=== PATIENT | male | born 1940 | race Caucasian/White ===

== ENCOUNTER 2018-05-20 05:39 | Inpatient (IN) ==
[2018-05-20] MEDS ORDERED: *HR* EPINEPHrine 1 MG/10 ML SYRINGE ONE (05:48)
[2018-05-20] MEDS ORDERED: *HR* EPINEPHrine 1 MG/ML AMPUL IM ONE (05:56)
[2018-05-20] MEDS ORDERED: Famotidine 20 MG/2 ML VIAL IVP ONE (05:56)
[2018-05-20] MEDS ORDERED: methylPREDNISolone 125 MG/2 ML VIAL IVP ONE (05:56)
--- NOTE | 2018-05-20 06:27 | Emergency Department Note ---
Disposition Clinical Impression: Wheezing Allergic reaction Qualifiers: Encounter type: initial encounter Qualified Code(s): T78.40XA - Allergy, unspecified, initial encounter Angioedema Qualifiers: Encounter type: initial encounter Qualified Code(s): T78.3XXA - Angioneurotic edema, initial encounter Dyspnea Qualifiers: Dyspnea type: unspecified Qualified Code(s): R06.00 - Dyspnea, unspecified Disposition: Still a Patient Condition: Fair Referrals: Kenny Christopher DO [Primary Care Provider] - Forms: ED Satisfaction Letter General Adult HPI - General Chief complaint: ED Allergic Reaction Stated complaint: sob/allergy/lip swelling Time Seen by Provider: 05/20/18 05:55 Source: patient, family Mode of arrival: ambulatory Limitations: no limitations Nursing Notes Reviewed: Yes Vital Signs Reviewed: Yes - History of Present Illness HPI Narrative: 77-year-old male with significant past medical history of coronary artery disease, TIA and previous angioedema presenting to the emergency department chief complaint of lower lip swelling and difficulty in breathing. Patient states that he woke up this morning and noticed lower lip swelling and some difficulty in breathing. He states this has happened recently and was admitted and worked up for this. He is supposed to see an loan funder on . During previous admission he was diagnosed with angioedema from unknown source. Patient denies any tongue swelling, chest pain, abdominal pain. Denies any new medications. Pain Scale: 0 - Related Data Home Medications Medication Instructions Recorded Confirmed Amlodipine Besylate 2.5 mg PO DAILY 04/06/18 05/06/18 Cholecalciferol (Vitamin D3) 4,000 unit PO DAILY 04/06/18 05/06/18 [Vitamin D3] Levothyroxine Sodium [Levoxyl] 88 mcg PO DAILY@0630 04/06/18 05/06/18 Losartan [Cozaar] 25 mg PO DAILY 04/06/18 05/06/18 Metoprolol Succinate [Toprol Xl] 25 mg PO DAILY 04/06/18 05/06/18 Potassium Chloride [Klor-Con 10] 10 meq PO BIDWM 04/06/18 05/06/18 Spironolactone [Aldactone] 25 mg PO DAILY 04/06/18 05/06/18 Acetaminophen [Pain Reliever] 500 mg PO Q6H PRN 05/06/18 05/06/18 Albuterol Sulfate [Albuterol 2 puff IH Q6H PRN 05/06/18 05/06/18 Inhaler] Calcium Carbonate [Tums] 500 mg PO Q4HR PRN 05/06/18 05/06/18 Calcium Carbonate/Vitamin D3 1 each PO DAILY 05/06/18 05/06/18 [Caltrate 600 + D Soft Chew Tab] Nitroglycerin [Nitrostat] 0.4 mg SL Q5M PRN 05/06/18 05/06/18 Previous Rx's Medication Instructions Recorded Aspirin Enteric Coated [Aspirin EC] 81 mg PO DAILY #30 tablet. 04/07/18 Atorvastatin [Lipitor] 40 mg PO HS #30 tablet 04/07/18 Allergies Allergy/AdvReac Type Severity Reaction Status Date / Time ezetimibe [From Vytorin] AdvReac Cough Verified 05/05/18 07:59 simvastatin [From Vytorin] AdvReac Cough Verified 05/05/18 07:59 All systems ED: reviewed and negative except as stated. Constitutional: Reports: as per HPI Eyes: Reports: as per HPI ENT ED: Reports: as per HPI Cardiovascular: Denies: chest pain Respiratory: Reports: dyspnea, wheezes Gastrointestinal: Denies: abdominal pain Genitourinary: Reports: as per HPI Musculoskeletal: Reports: as per HPI Integumentary: Denies: rash Neurological: Reports: as per HPI Psychiatric: Reports: as per HPI Endocrine: Reports: as per HPI Hematological/Lymphatic: Reports: as per HPI Allergic/Immunologic: Reports: as per HPI Past Medical History - Past Medical History Attestation: Yes The following information was validated with the patient. Medical history: Reports: COPD, coronary artery disease, hyperlipidemia, hypertension, myocardial infarction, thyroid disease Surgical history: Reports: appendectomy, cholecystectomy, other Psychiatric history: Reports: no psych history - Social History Smoking Status: Current some day smoker Smokeless Tobacco Status: No Alcohol use: Reports: none Drug use: Reports: none Physical Exam - General Limitations: no limitations General appearance: alert, in no apparent distress - Head Head exam: atraumatic, normocephalic, normal inspection - Eye Eye exam: Absent: scleral icterus - ENT ENT exam: other (Lower lip swelling. Tongue within normal limits. Uvula midline. Patient able to handle secretions without difficulty. Able to swallow without difficulty.) - Neck Neck exam: Present: full ROM - Chest Chest inspection: Present: symmetric chest wall rise - Respiratory Respiratory exam: Present: wheezes (Diffuse inspiratory and expiratory wheezing) - Cardiovascular Cardiovascular exam: Present: regular rate - Abdominal Exam Abdominal exam: Present: soft, Non-Tender - Extremities Exam Extremities exam: Present: full ROM - Neurological Exam Neurological exam: Present: alert, oriented X3 - Psychiatric Psychiatric exam: Present: normal affect - Skin Skin exam: Present: warm Course Course Narrative: 77-year-old male presenting to the emergency department with lower lip swelling and difficulty in breathing. In the room he is alert and oriented 3. Handling secretions and able to swallow without difficulty. Lower lip is swollen. Patient does have diffuse inspiratory and expiratory wheezing. Oxygen saturation in the mid to low 90s. Concern for repeat angioedema. Patient does say he ate cashews last evening but has never had a peanut allergy before. At this time patient Mir receive 50 mg of Benadryl home. We will provide him with Pepcid, Solu-Medrol and 0.3 mg of IM epinephrine. We will perform a chest x-ray basic laboratory analysis. Disposition most likely admission due to patient's difficulty in breathing. Patient understands and agrees with this plan. - Reevaluation(s) Reevaluation #1: Patient remains hemodynamically stable. Pending chest x-ray and labs. We will plan to sign the patient out to the day team Dr. Medina. Vital Signs Temperature 97.8 F 05/20/18 05:41 Pulse Rate 67 05/20/18 05:41 Respiratory Rate 24 05/20/18 05:41 Blood Pressure 164/109 05/20/18 05:41 O2 Sat by Pulse Oximetry 95 05/20/18 05:41 Temperature 97.8 F 05/20/18 05:41 Pulse Rate 58 05/20/18 06:24 Respiratory Rate 18 05/20/18 06:40 Blood Pressure 158/87 05/20/18 06:24 O2 Sat by Pulse Oximetry 95 05/20/18 06:40 Oxygen Delivery Oxygen Delivery Room Air
[2018-05-20] MEDS ORDERED: Ipratropium/Albuterol Neb 3 ML IH ONE ×2 (06:33→07:26)
--- NOTE | 2018-05-20 06:35 | Emergency Department Note ---
Disposition Clinical Impression: Wheezing Allergic reaction Qualifiers: Encounter type: initial encounter Qualified Code(s): T78.40XA - Allergy, unspecified, initial encounter Angioedema Qualifiers: Encounter type: initial encounter Qualified Code(s): T78.3XXA - Angioneurotic edema, initial encounter Dyspnea Qualifiers: Dyspnea type: shortness of breath Qualified Code(s): R06.02 - Shortness of breath; R06.00 - Dyspnea, unspecified; R06.01 - Orthopnea Disposition: Still a Patient Condition: Fair Referrals: Kenny Christopher DO [Primary Care Provider] - Forms: ED Satisfaction Letter General Adult HPI - General Chief complaint: ED Allergic Reaction Stated complaint: sob/allergy/lip swelling Time Seen by Provider: 05/20/18 05:55 Source: patient, family Limitations: no limitations Nursing Notes Reviewed: Yes Vital Signs Reviewed: Yes - History of Present Illness Pain Scale: 0 - Related Data Home Medications Medication Instructions Recorded Confirmed Amlodipine Besylate 2.5 mg PO DAILY 04/06/18 05/06/18 Cholecalciferol (Vitamin D3) 4,000 unit PO DAILY 04/06/18 05/06/18 [Vitamin D3] Levothyroxine Sodium [Levoxyl] 88 mcg PO DAILY@0630 04/06/18 05/06/18 Losartan [Cozaar] 25 mg PO DAILY 04/06/18 05/06/18 Metoprolol Succinate [Toprol Xl] 25 mg PO DAILY 04/06/18 05/06/18 Potassium Chloride [Klor-Con 10] 10 meq PO BIDWM 04/06/18 05/06/18 Spironolactone [Aldactone] 25 mg PO DAILY 04/06/18 05/06/18 Acetaminophen [Pain Reliever] 500 mg PO Q6H PRN 05/06/18 05/06/18 Albuterol Sulfate [Albuterol 2 puff IH Q6H PRN 05/06/18 05/06/18 Inhaler] Calcium Carbonate [Tums] 500 mg PO Q4HR PRN 05/06/18 05/06/18 Calcium Carbonate/Vitamin D3 1 each PO DAILY 05/06/18 05/06/18 [Caltrate 600 + D Soft Chew Tab] Nitroglycerin [Nitrostat] 0.4 mg SL Q5M PRN 05/06/18 05/06/18 Previous Rx's Medication Instructions Recorded Aspirin Enteric Coated [Aspirin EC] 81 mg PO DAILY #30 tablet. 04/07/18 Atorvastatin [Lipitor] 40 mg PO HS #30 tablet 04/07/18 Allergies Allergy/AdvReac Type Severity Reaction Status Date / Time ezetimibe [From Vytorin] AdvReac Cough Verified 05/05/18 07:59 simvastatin [From Vytorin] AdvReac Cough Verified 05/05/18 07:59 Past Medical History - Past Medical History Medical history: Reports: COPD, coronary artery disease, hyperlipidemia, hypertension, myocardial infarction, thyroid disease Surgical history: Reports: appendectomy, cholecystectomy, other Psychiatric history: Reports: no psych history - Social History Smoking Status: Current some day smoker Smokeless Tobacco Status: No Alcohol use: Reports: none Drug use: Reports: none Physical Exam - General Limitations: no limitations General appearance: alert, in no apparent distress Course Vital Signs Temperature 97.8 F 05/20/18 05:41 Pulse Rate 67 05/20/18 05:41 Respiratory Rate 24 05/20/18 05:41 Blood Pressure 164/109 05/20/18 05:41 O2 Sat by Pulse Oximetry 95 05/20/18 05:41 Temperature 97.8 F 05/20/18 05:41 Pulse Rate 58 05/20/18 06:24 Respiratory Rate 20 05/20/18 06:24 Blood Pressure 158/87 05/20/18 06:24 O2 Sat by Pulse Oximetry 95 05/20/18 06:24 Oxygen Delivery Oxygen Delivery Room Air Medical Decision Making - EKG Data EKG #1 EKG attestation: Yes I reviewed and interpreted this EKG. EKG results narrative: Sinus bradycardia with ventricular rate of 59. No ST segment elevation or depression. No arrhythmia or ectopy. Nonspecific T-wave flattening in lateral leads. Attestation Statement - Attestation Attestation: I, Isaiah Dong MD, personally evaluated this patient and discussed their management with the resident physician. I reviewed the resident's note and agree with the documented findings, medical decision making, and plan of care. 77-year-old male presents to the emergency department with a complaint that he awoke from sleep about 5 AM with swelling of his lower lip and shortness of breath. He denies any rash or itching. Patient does have a history of similar episodes recently. He was admitted here 2 weeks ago and states at that time his entire tongue was swollen. He did not have to be intubated. His gave him Benadryl 50 mg at home prior to coming to the emergency department. Patient unsure of the etiology of the reaction. states that he ate some cashews last evening and she thinks maybe the reaction is to nuts. On examination patient is a well-developed well-nourished elderly male in mild respiratory distress. He is alert and oriented 3. There is no cyanosis or diaphoresis. He is able to speak in sentences but is obviously short of breath at rest. There is mild angioedema of the lower lip. No obvious swelling of the tongue or uvula or soft palate. Breath sounds are equal bilaterally with scattered diffuse bilateral inspiratory and expiratory wheezes. Heart regular rate and rhythm. Abdomen soft and nontender with normal bowel sounds. No pedal edema. EKG shows a sinus bradycardia with ventricular rate of 59. No ST segment elevation or depression. No arrhythmia or ectopy. Nonspecific T-wave flattening in lateral leads. Patient received Benadryl 50 mg at home. Here in the emergency department an IV was established and he received Solu-Medrol 125 mg and Pepcid 20 mg IV. He also received epinephrine 0.3 mg IM. After treatment he did seem to have slight improvement in the swelling of his lip but continues to have diffuse inspiratory and expiratory wheezing. DuoNeb nebulizer treatments ordered. At morning shift change patient is signed out to the [facility] physician, Dr. Medina.
[2018-05-20 06:49] LABS: Basophils # 0.1 K/mcL (0.0-0.2); Basophils % 0.4 %; Eosinophils # 0.2 K/mcL (0.0-0.6); Eosinophils % 1.2 %; Hemoglobin 14.7 g/dL (12.9-16.9); Immature Granulocytes % 0.7 % (0-4); Lymphocytes # 4.6 K/mcL (0.6-4.6); Lymphocytes % 28.8 %; Mean Corpuscular HGB Conc 34.2 g/dL (31.6-35.5); Mean Corpuscular Hemoglobin 31.1 pg (28.0-33.3); Mean Corpuscular Volume 91.1 fL (83.0-100.0); Mean Platelet Volume 10.6 fL (9.4-12.4); Monocytes # 1.6 K/mcL (0.0-1.3); Monocytes % 9.8 %; Neutrophils # 9.4 K/mcL (1.6-8.9); Platelet Count 244 K/mcL (140-400); Red Blood Count 4.72 M/mcL (4.19-5.50); Red Cell Distribution Width 13.8 % (11.5-14.5); Segmented Neutrophils % 59.1 %
--- NOTE | 2018-05-20 06:59 | Emergency Department Note ---
Disposition Clinical Impression: Wheezing Allergic reaction Qualifiers: Encounter type: initial encounter Qualified Code(s): T78.40XA - Allergy, unspecified, initial encounter Angioedema Qualifiers: Encounter type: initial encounter Qualified Code(s): T78.3XXA - Angioneurotic edema, initial encounter Dyspnea Qualifiers: Dyspnea type: unspecified Qualified Code(s): R06.00 - Dyspnea, unspecified Disposition: Still a Patient Condition: Fair Referrals: Kenny Christopher DO [Primary Care Provider] - Forms: ED Satisfaction Letter General Adult HPI - General Chief complaint: ED Allergic Reaction Stated complaint: sob/allergy/lip swelling Time Seen by Provider: 05/20/18 05:55 Source: patient, family Mode of arrival: ambulatory Limitations: no limitations - History of Present Illness Pain Scale: 0 - Related Data Home Medications Medication Instructions Recorded Confirmed Amlodipine Besylate 2.5 mg PO DAILY 04/06/18 05/06/18 Cholecalciferol (Vitamin D3) 4,000 unit PO DAILY 04/06/18 05/06/18 [Vitamin D3] Levothyroxine Sodium [Levoxyl] 88 mcg PO DAILY@0630 04/06/18 05/06/18 Losartan [Cozaar] 25 mg PO DAILY 04/06/18 05/06/18 Metoprolol Succinate [Toprol Xl] 25 mg PO DAILY 04/06/18 05/06/18 Potassium Chloride [Klor-Con 10] 10 meq PO BIDWM 04/06/18 05/06/18 Spironolactone [Aldactone] 25 mg PO DAILY 04/06/18 05/06/18 Acetaminophen [Pain Reliever] 500 mg PO Q6H PRN 05/06/18 05/06/18 Albuterol Sulfate [Albuterol 2 puff IH Q6H PRN 05/06/18 05/06/18 Inhaler] Calcium Carbonate [Tums] 500 mg PO Q4HR PRN 05/06/18 05/06/18 Calcium Carbonate/Vitamin D3 1 each PO DAILY 05/06/18 05/06/18 [Caltrate 600 + D Soft Chew Tab] Nitroglycerin [Nitrostat] 0.4 mg SL Q5M PRN 05/06/18 05/06/18 Previous Rx's Medication Instructions Recorded Aspirin Enteric Coated [Aspirin EC] 81 mg PO DAILY #30 tablet. 04/07/18 Atorvastatin [Lipitor] 40 mg PO HS #30 tablet 04/07/18 Allergies Allergy/AdvReac Type Severity Reaction Status Date / Time ezetimibe [From Vytorin] AdvReac Cough Verified 05/05/18 07:59 simvastatin [From Vytorin] AdvReac Cough Verified 05/05/18 07:59 Constitutional: Reports: as per HPI Eyes: Reports: as per HPI ENT ED: Reports: as per HPI Cardiovascular: Denies: chest pain Respiratory: Reports: dyspnea, wheezes Gastrointestinal: Denies: abdominal pain Genitourinary: Reports: as per HPI Musculoskeletal: Reports: as per HPI Integumentary: Denies: rash Neurological: Reports: as per HPI Psychiatric: Reports: as per HPI Endocrine: Reports: as per HPI Hematological/Lymphatic: Reports: as per HPI Allergic/Immunologic: Reports: as per HPI Past Medical History - Past Medical History Medical history: Reports: COPD, coronary artery disease, hyperlipidemia, hypertension, myocardial infarction, thyroid disease Surgical history: Reports: appendectomy, cholecystectomy, other Psychiatric history: Reports: no psych history - Social History Smoking Status: Current some day smoker Smokeless Tobacco Status: No Alcohol use: Reports: none Drug use: Reports: none Physical Exam - General Limitations: no limitations General appearance: alert, in no apparent distress Course - Reevaluation(s) Reevaluation #1: Patient signed out pending reevaluation and admission. Patient emergency department with difficulty in breathing and lower lip swelling that he woke up with. A couple weeks ago for which she was admitted for an unknown allergic reaction. On my evaluation the patient is improved. He still has diffuse rhonchi and wheezing. He is placed on 2 L of oxygen. He is in no respiratory distress. He has good air exchange and satting 93% on room air. Time: 06:57 Reevaluation #2: Patient reevaluated. Still with diffuse expiratory wheezing. We will give another DuoNeb and albuterol. Calling for admission. Time: 07:27 Vital Signs Temperature 97.8 F 05/20/18 05:41 Pulse Rate 67 05/20/18 05:41 Respiratory Rate 24 05/20/18 05:41 Blood Pressure 164/109 05/20/18 05:41 O2 Sat by Pulse Oximetry 95 05/20/18 05:41 Temperature 97.8 F 05/20/18 05:41 Pulse Rate 58 05/20/18 06:24 Respiratory Rate 18 05/20/18 06:40 Blood Pressure 158/87 05/20/18 06:24 O2 Sat by Pulse Oximetry 95 05/20/18 06:40 Oxygen Delivery Oxygen Delivery Room Air Medical Decision Making - Lab Data Result diagrams: 05/20/18 06:36 05/20/18 06:36 Lab Results 05/20/18 05/20/18 Range/Units 06:36 06:36 WBC 16.0 H (4.3-11.1) K/mcL RBC 4.72 (4.19-5.50) M/mcL Hgb 14.7 (12.9-16.9) g/dL Hct 43.0 (37.5-50.1) % MCV 91.1 (83.0-100.0) fL MCH 31.1 (28.0-33.3) pg MCHC 34.2 (31.6-35.5) g/dL RDW 13.8 (11.5-14.5) % Plt Count 244 (140-400) K/mcL MPV 10.6 (9.4-12.4) fL Immature Gran % 0.7 (0-4) % Seg Neutrophils % 59.1 % Lymphocytes % 28.8 % Monocytes % 9.8 % Eosinophils % 1.2 % Basophils % 0.4 % Neutrophils # 9.4 H (1.6-8.9) K/mcL Lymphocytes # 4.6 (0.6-4.6) K/mcL Monocytes # 1.6 H (0.0-1.3) K/mcL Eosinophils # 0.2 (0.0-0.6) K/mcL Basophils # 0.1 (0.0-0.2) K/mcL Sodium 137 (136-145) mEq/L Potassium 4.0 (3.5-5.1) mEq/L Chloride 102 (98-107) mEq/L Carbon Dioxide 26 (23-29) mEq/L BUN 17 (8-23) mg/dL Creatinine 1.31 H (0.70-1.30) mg/dL Est GFR ( Amer) > 60 (> 60) Est GFR (Non-Af Amer) 53 L (> 60) BUN/Creatinine Ratio 13 (6-26) Glucose 148 H (70-105) mg/dL Calculated Osmolality 288 (280-300) Calcium 10.0 (8.6-10.3) mg/dL
[2018-05-20 07:11] LABS: BUN/Creatinine Ratio 13 (6-26); Blood Urea Nitrogen 17 mg/dL (8-23); Carbon Dioxide 26 mEq/L (23-29); Chloride 102 mEq/L (98-107); Glucose 148 mg/dL (70-105); Osmolality,Calculated 288 (280-300); Sodium 137 mEq/L (136-145); eGFR For Non-African Americans 53 (> 60)
[2018-05-20] MEDS ORDERED: Albuterol 2.5 MG/3 ML NEBULIZER IH ONE (07:26)
--- NOTE | 2018-05-20 08:10 | Internal Med History&Physical ---
Date of Encounter: 05/20/18 Time of Encounter: 08:07 Internal Medicine - H&P: HPI Chief complaint: lower lip swellimg Admitted From: Home Plans for Post Hospital Care: Home History of present illness: Mr. German is a 77 year old male with history of hypertension, COPD, CAD with [place] in 2002, uptake no tumor, pituitary tumor status post surgery 2010 presented to [facility] with lower lip swelling. As per patient he had some cashews prior to going to bed and woke up around 5 AM with lower lip swelling which prompted him to come to the emergency department for further evaluation. His symptoms began suddenly and after presented to the emergency department and receiving steroids he feels as though the swelling has mildly improved. He denies numbness or tingling around his mouth, denies tongue swelling, denies difficulty breathing or drooling however he does report that he has more wheezing than usual. He reports that his symptoms are sore to the symptoms that he had 2 weeks ago when he was admitted for tongue swelling and lip swelling. He denies taking any MICHAEL inhibitor or ARBS currently. After his previous hospitalization he was seen in his primary care doctor and he was noticed that he was wheezing so he was started on a Z-Trip around the 18th and completed 4 out of the 5 days due to worsening wheezing. Azithromycin is been only new medication that he reports that he was given. He did not contact his primary care doctor with the worsening wheezing that he developed after using azithromycin. He does report that he has developed rhinorrhea and productive cough for the past 2 days which is progressively worsening and is associated with his wheezing. He denies fever, chills, palpitations, chest pain, nausea, vomiting, diarrhea. 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 - Social History Smoking Status: Current some day smoker Smokeless Tobacco Status: No Alcohol use: none Drug use: none - Family History Mother Living Status: Hx Family Cardiac Disorders: Yes Hx Family Respiratory Disorders: Yes Hx Family Cancer: No Hx Family GI Disorders: No Hx Family Endocrine Disorder: No Hx Family Neuromuscular Disorders: No Hx Family Neurologic Disorders: No Hx Family HEENT Disorders: No Hx Family Autoimmune Disorders: No Father Living Status: Hx Family Cardiac Disorders: Yes Hx Family Neurologic Disorders: No Internal Medicine - H&P: Meds Amlodipine Besylate 2.5 mg PO DAILY 04/06/18 [History] Cholecalciferol (Vitamin D3) [Vitamin D3] 4,000 unit PO DAILY 04/06/18 [History] Levothyroxine Sodium [Levoxyl] 88 mcg PO DAILY@0630 04/06/18 [History] Losartan [Cozaar] 25 mg PO DAILY 04/06/18 [History] Metoprolol Succinate [Toprol Xl] 25 mg PO DAILY 04/06/18 [History] Potassium Chloride [Klor-Con 10] 10 meq PO BIDWM 04/06/18 [History] Spironolactone [Aldactone] 25 mg PO DAILY 04/06/18 [History] Aspirin Enteric Coated [Aspirin EC] 81 mg PO DAILY #30 tablet. 04/07/18 [Rx] Atorvastatin [Lipitor] 40 mg PO HS #30 tablet 04/07/18 [Rx] Acetaminophen [Pain Reliever] 500 mg PO Q6H PRN 05/06/18 [History] Albuterol Sulfate [Albuterol Inhaler] 2 puff IH Q6H PRN 05/06/18 [History] Calcium Carbonate [Tums] 500 mg PO Q4HR PRN 05/06/18 [History] Calcium Carbonate/Vitamin D3 [Caltrate 600 + D Soft Chew Tab] 1 each PO DAILY 05/06/18 [History] Nitroglycerin [Nitrostat] 0.4 mg SL Q5M PRN 05/06/18 [History] Allergy/AdvReac Type Severity Reaction Status Date / Time ezetimibe [From Vytorin] AdvReac Cough Verified 05/05/18 07:59 simvastatin [From Vytorin] AdvReac Cough Verified 05/05/18 07:59 All Systems PM: A 10-system review of systems was performed and is negative for pertinent findings except as documented above in the HPI. - Constitutional Vitals: Temp Pulse Resp BP Pulse Ox 97.8 F 58 18 158/87 95 05/20/18 05:41 05/20/18 06:24 05/20/18 07:52 05/20/18 06:24 05/20/18 07:52 Exam: General: Patient is alert, oriented,overweight, speaks in full sentences, not in any acute distress Head: atraumatic, normocephalic, Eye: normal appearance, PERRL, no scleral icterus, no conjunctival injection ENT mucous membrane is moist, with a tongue depressor uvula is well visualized no swelling of the throat noted, lower lip is visibly swollen, no drooling Neck: normal inspection, trachea midline, full ROM, no carotid bruits, no stridor Chest: normal inspection, symmetric chest rise Respiratory: Good respiratory effort. Bilateral wheezing in the anterior chest, could not appreciate any crackles Cardiovascular: Regular rate and rhythm. s1 and s2 No clicks, rubs, gallops, or murmors. Abdomen: Bowel sounds present normoactive x-4 quadrants. Abdomen is soft, nondistended. no Epigastric tenderness. No guarding or rebound. No organomegaly noted, obese musculoskeletal: Spontaneously moving all extremities ( left lower extremity in support) . no edema, no calf tenderness Skin: warm, dry, intact. Neuro: Alert and oriented x4. No focal deficit Psych: Patient's affect is normal Internal Med - H&P Results - Labs CBC & Chem 7: 05/20/18 06:36 05/20/18 06:36 Labs: Short CBC 05/20/18 Range/Units 06:36 WBC 16.0 H (4.3-11.1) K/mcL Hgb 14.7 (12.9-16.9) g/dL Hct 43.0 (37.5-50.1) % Plt Count 244 (140-400) K/mcL Neutrophils # 9.4 H (1.6-8.9) K/mcL BMP 05/20/18 06:36 Sodium 137 Potassium 4.0 Chloride 102 Carbon Dioxide 26 BUN 17 Creatinine 1.31 H Glucose 148 H Calcium 10.0 - EKG Data -: EKG Interpreted by Myself EKG shows normal: sinus rhythm - EKG Data Prior EKG available for review: yes When compared to previous EKG: there is no significant change - Impressions ITS Impressions Chest X-Ray 05/20/18 05:56 IMPRESSION: Left basilar atelectasis or, less likely, pneumonia. D/ / Franky Schultz MD / Franky Schultz MD Interpreting Provider: Franky Schultz MD - Assessment and Plan (1) Acute exacerbation of chronic obstructive pulmonary disease (COPD) Current Visit: Yes Status: Acute Assessment and plan: was given solumedrol 125 mg in the ED continue with 40 mg Q8H respiratory viral panel levaquin Urine Antigen sputum cx DUo-nebs Q4H keep oxygen saturation above 92% ( was recently treated with Zpack as OP) - without improvement (2) Angioedema Current Visit: Yes Status: Acute Assessment and plan: Most likely secondary to the cashews that he had prior to going to bed and woke up with symptoms. was recently seen at PCP office for COPD exacerbation on 05/12 and was staretd on Zpack with worsening wheezing ? due to Zithromax discussed case with ENT and they are in agreement with plan below CT neck ordered will follow Rac[place] epinephrine neb- if he develops difficulty breathing- currently speaking in full sentences keep epinephrine pen at bedside- will need to be discharged on an EPI pen duo-nebs Consider vasoppressor if hypotension recieved solumedrol 125 mg once in the ED - Solumedrol 40mg Q8H H1/H2 blockers: Benadryl 25-50 mg IVPB Q 4-6 hrs and Ranitidine 150 mg IVPB BID GI prophylaxis Continue home meds, if not contraindicated Qualifiers: Encounter type: initial encounter Qualified Code(s): T78.3XXA - Angioneurotic edema, initial encounter (3) Allergic reaction Current Visit: Yes Status: Acute Assessment and plan: Patient reports that he ate cashews before bed and woke up with the swollen l ower lip vs azithromycin prescribed last week Management as above Qualifiers: Encounter type: initial encounter Qualified Code(s): T78.40XA - Allergy, unspecified, initial encounter (4) CAD (coronary artery disease) Current Visit: No Status: Chronic Assessment and plan: will continue home medications once verified if not CI Qualifiers: Coronary Disease-Associated Artery/Lesion type: [place] artery [place] vs. transplanted heart: [place] heart Associated angina: without angina Qualified Code(s): I25.10 - Atherosclerotic heart disease of [place] coronary artery without angina pectoris (5) HTN (hypertension) Current Visit: No Status: Chronic Assessment and plan: hold all ACEI and ARB continue home medications if not CI and if he is not hypotensive Qualifiers: Hypertension type: essential hypertension Qualified Code(s): I10 - Essential (primary) hypertension (6) Hypothyroid Current Visit: No Status: Chronic Assessment and plan: continue synthroid Qualifiers: Hypothyroidism type: acquired Qualified Code(s): E03.9 - Hypothyroidism, unspecified (7) DVT prophylaxis Current Visit: No Status: Acute Assessment and plan: heparin sc - Time Spent With Patient Total time spent is greater than 50% in coordination of care (as documented) at patient's floor/unit and/or counseling patient:
[2018-05-20] MEDS ORDERED: Naloxone 0.4 MG/ML INJ IVP PRN (08:18)
[2018-05-20] MEDS ORDERED: *HR* EPINEPHrine 1 MG/ML AMPUL IM PRN (08:31)
[2018-05-20 08:38] LABS: Magnesium 2.2 mg/dL (1.6-2.6); Phosphorous 3.5 mg/dL (2.7-4.5)
[2018-05-20] MEDS: Pantoprazole 40 MG VIAL IVP SCH (09:35)
[2018-05-20] MEDS: Levofloxacin 750 MG/150 ML 750 MG/150 ML BAG IVPB SCH (09:35)
[2018-05-20] MEDS: 0.9 % Sodium Chloride 1,000 ML IVC SCH (09:35)
--- NOTE | 2018-05-20 11:05 | ENT - Consult Note ---
Addendum entered and electronically signed by Diana Gonzalez DO 05/21/18 07:57: Discussed diagnosis with patient's over the telephone. Discussed that no airway compromise currently and to maintain follow up with Dr. Llanos as outpatient for further evaluation and treatment Original Note: <Naima Mercado - Last Filed: 05/20/18 17:01> Date of Encounter: 05/20/18 Time of Encounter: 11:05 Assessment and Plan (1) Angioedema Current Visit: Yes Status: Acute Patient seen and examined at bedside today. Nasolaryngoscopy completed which demonstrated patent airway. No evidence of Oral mucosal swelling, no swelling of the floor of mouth, tongue, lips, or oropharynx. Denies symptoms of dysphagia or odynophagia, or hoarseness. Patient is controlling secretions well and denies any difficulty with speech. Recommend continuation of IV steroids and H1, H2 blockers. May transition to oral steroids at discharge. May advance diet to regular diet. Unclear etiology for symptoms at this time, although may be food related. Will order C4 complement and tryptase labs at request of Dr. Viet sims physician. Recommend follow-up at scheduled appointment this (05/22/18) with Dr. Llanos allergen/immunology physician for further evaluation. All questions answered. Qualifiers: Encounter type: initial encounter Qualified Code(s): T78.3XXA - Angioneurotic edema, initial encounter (2) Airway compromise Current Visit: Yes Status: Acute Patient had nasolaryngoscopy performed today at bedside which demonstrated widely patent airway, no pharyngeal or laryngeal swelling. No evidence of any any oral mucosal swelling, swelling of the tongue, or lips. Patient also had CT of cervical spine completed which also demonstrated patent airway, with epiglottis and vocal cords unremarkable, and No gross inflammatory changes are identified within the soft tissues of the neck. Patient currently denies any symptoms of dysphagia, odynophagia, hoarseness, changes in voice, difficulty controlling secretions, stridor, or wheezing. No further intervention is recommended at this time. Continue to monitor O2 saturation. (3) Acute exacerbation of chronic obstructive pulmonary disease (COPD) Current Visit: Yes Status: Acute Hospitalist managing. 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 Patient does have history of removal of pituitary tumor via intranasal/sinus approach. Recommend continued follow up with neurosurgeon at [facility] who previously completed surgery for removal of pituitary tumor. Patient states he does follow with the neurosurgeon on a regular basis and recently seen surgeon following discharge from hospital in April. At which time neurosurgeon reviewed imaging obtained at last visit. Recommend continued follow with this neurosurgeon for this issue. History of Present Illness Consult date: 05/20/18 Reason for ENT Consult: other (angioedema) Requesting physician: Luz Elena Gary History of present illness: Patient is a 77 year old male with past medical history of hypertension, COPD, CAD with [place] in 2002, pituitary tumor status post surgery 2010. 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 Kim, which patient reports he continues to follow with and recently seen after last admission. Patient presented to ER this A.M. with complaint of lower lip swelling. Patient reports he ate cashews prior to going to bed and woke up around 5 AM with lower lip swelling which prompted him to come to the emergency department for further evaluation. Patient was previously seen on last admission in April for complaint of angioedema at that time, with unclear etiology. Patient currently denies any dysphagia, odynophagia, hoarseness or difficulty controlling his secretions. Also, denies any changes in his voice. 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 - Social History Smoking Status: Current some day smoker Smokeless Tobacco Status: No Alcohol use: none Drug use: none - Family History Mother Living Status: Hx Family Cardiac Disorders: Yes Hx Family Respiratory Disorders: Yes Hx Family Cancer: No Hx Family GI Disorders: No Hx Family Endocrine Disorder: No Hx Family Neuromuscular Disorders: No Hx Family Neurologic Disorders: No Hx Family HEENT Disorders: No Hx Family Autoimmune Disorders: No Father Living Status: Hx Family Cardiac Disorders: Yes Hx Family Neurologic Disorders: No Medications and Allergies Amlodipine Besylate 2.5 mg PO DAILY 04/06/18 [History] Cholecalciferol (Vitamin D3) [Vitamin D3] 4,000 unit PO DAILY 04/06/18 [History] Levothyroxine Sodium [Levoxyl] 88 mcg PO DAILY@0630 04/06/18 [History] Losartan [Cozaar] 25 mg PO DAILY 04/06/18 [History] Metoprolol Succinate [Toprol Xl] 25 mg PO DAILY 04/06/18 [History] Potassium Chloride [Klor-Con 10] 10 meq PO BIDWM 04/06/18 [History] Spironolactone [Aldactone] 25 mg PO DAILY 04/06/18 [History] Aspirin Enteric Coated [Aspirin EC] 81 mg PO DAILY #30 tablet. 04/07/18 [Rx] Atorvastatin [Lipitor] 40 mg PO HS #30 tablet 04/07/18 [Rx] Acetaminophen [Pain Reliever] 500 mg PO Q6H PRN 05/06/18 [History] Albuterol Sulfate [Albuterol Inhaler] 2 puff IH Q6H PRN 05/06/18 [History] Calcium Carbonate [Tums] 500 mg PO Q4HR PRN 05/06/18 [History] Calcium Carbonate/Vitamin D3 [Caltrate 600 + D Soft Chew Tab] 1 each PO DAILY 05/06/18 [History] Nitroglycerin [Nitrostat] 0.4 mg SL Q5M PRN 05/06/18 [History] Allergy/AdvReac Type Severity Reaction Status Date / Time ezetimibe [From Vytorin] AdvReac Cough Verified 05/05/18 07:59 simvastatin [From Vytorin] AdvReac Cough Verified 05/05/18 07:59 ENT - ROS - EENT Nose, mouth and throat: lip swelling ENT Exam Initial Vital Signs Temp Pulse Resp BP Pulse Ox 97.8 F 67 24 164/109 95 05/20/18 05:41 05/20/18 05:41 05/20/18 05:41 05/20/18 05:41 05/20/18 05:41 - General physical appearance well developed, well nourished, no distress - Eyes PERRL, normal ocular movement - ENT normal pinna, normal nares, normal mucosa, CN 2-12 grossly intact, Other (EARS: EAC's clear bilateral, TM's normal bilateral. NOSE: nares patent bilateral, nasal mucosa moist without lesion. ORAL: tongue midline, no areas of edema noted to tongue, floor of mouth, oral mucosa, or oropharynx. Tongue is midline. Uvula is midilne.) - Neck trachea midline, no lymphadectomy - Respiratory normal expansion, normal respiratory effort - Neurologic CN 2-12 grossly intact, normal coordination, normal sensation - Musculoskeletal normal gait, normal posture - Psychiatric oriented to time, oriented to person, oriented to place, speech is normal Exam Initial Vital Signs Temp Pulse Resp BP Pulse Ox 97.8 F 67 24 164/109 95 05/20/18 05:41 05/20/18 05:41 05/20/18 05:41 05/20/18 05:41 05/20/18 05:41 Results - Labs 05/20/18 06:36 05/20/18 06:36 Abnormal lab results WBC 16.0 K/mcL (4.3-11.1) H 05/20/18 06:36 Neutrophils # 9.4 K/mcL (1.6-8.9) H 05/20/18 06:36 Monocytes # 1.6 K/mcL (0.0-1.3) H 05/20/18 06:36 Creatinine 1.31 mg/dL (0.70-1.30) H 05/20/18 06:36 Est GFR (Non-Af Amer) 53 (> 60) L 05/20/18 06:36 Glucose 148 mg/dL (70-105) H 05/20/18 06:36 Diabetes panel 05/20/18 Range/Units 06:36 Sodium 137 (136-145) mEq/L Potassium 4.0 (3.5-5.1) mEq/L Chloride 102 (98-107) mEq/L Carbon Dioxide 26 (23-29) mEq/L BUN 17 (8-23) mg/dL Creatinine 1.31 H (0.70-1.30) mg/dL Glucose 148 H (70-105) mg/dL Calcium 10.0 (8.6-10.3) mg/dL Calcium panel 05/20/18 Range/Units 06:36 Calcium 10.0 (8.6-10.3) mg/dL Phosphorus 3.5 (2.7-4.5) mg/dL Pituitary panel 05/20/18 Range/Units 06:36 Sodium 137 (136-145) mEq/L Potassium 4.0 (3.5-5.1) mEq/L Chloride 102 (98-107) mEq/L Carbon Dioxide 26 (23-29) mEq/L BUN 17 (8-23) mg/dL Creatinine 1.31 H (0.70-1.30) mg/dL Glucose 148 H (70-105) mg/dL Calcium 10.0 (8.6-10.3) mg/dL Adrenal panel 05/20/18 Range/Units 06:36 Sodium 137 (136-145) mEq/L Potassium 4.0 (3.5-5.1) mEq/L Chloride 102 (98-107) mEq/L Carbon Dioxide 26 (23-29) mEq/L BUN 17 (8-23) mg/dL Creatinine 1.31 H (0.70-1.30) mg/dL Glucose 148 H (70-105) mg/dL Calcium 10.0 (8.6-10.3) mg/dL All other labs normal. Consult Discharge Plan - Plan Referrals: Kenny Christopher DO [Primary Care Provider] - <Diana Gonzalez - Last Filed: 05/20/18 18:33> Date of Encounter: 05/20/18 Assessment and Plan (1) Angioedema Current Visit: Yes Status: Acute Qualifiers: Encounter type: initial encounter Qualified Code(s): T78.3XXA - Angioneurotic edema, initial encounter (2) Acute exacerbation of chronic obstructive pulmonary disease (COPD) Current Visit: Yes Status: Acute (3) Airway compromise Current Visit: Yes Status: Acute (4) Abnormal CT scan of head Current Visit: Yes Status: Acute ENT Exam Initial Vital Signs Temp Pulse Resp BP Pulse Ox 97.8 F 67 24 164/109 95 05/20/18 05:41 05/20/18 05:41 05/20/18 05:41 05/20/18 05:41 05/20/18 05:41 Exam Initial Vital Signs Temp Pulse Resp BP Pulse Ox 97.8 F 67 24 164/109 95 05/20/18 05:41 05/20/18 05:41 05/20/18 05:41 05/20/18 05:41 05/20/18 05:41 Results - Labs 05/20/18 06:36 05/20/18 06:36 Abnormal lab results WBC 16.0 K/mcL (4.3-11.1) H 05/20/18 06:36 Neutrophils # 9.4 K/mcL (1.6-8.9) H 05/20/18 06:36 Monocytes # 1.6 K/mcL (0.0-1.3) H 05/20/18 06:36 Creatinine 1.31 mg/dL (0.70-1.30) H 05/20/18 06:36 Est GFR (Non-Af Amer) 53 (> 60) L 05/20/18 06:36 Glucose 148 mg/dL (70-105) H 05/20/18 06:36 Coronavirus OC43 (PCR) DETECTED (Not Detect) A 05/20/18 09:45 Diabetes panel 05/20/18 Range/Units 06:36 Sodium 137 (136-145) mEq/L Potassium 4.0 (3.5-5.1) mEq/L Chloride 102 (98-107) mEq/L Carbon Dioxide 26 (23-29) mEq/L BUN 17 (8-23) mg/dL Creatinine 1.31 H (0.70-1.30) mg/dL Glucose 148 H (70-105) mg/dL Calcium 10.0 (8.6-10.3) mg/dL Calcium panel 05/20/18 Range/Units 06:36 Calcium 10.0 (8.6-10.3) mg/dL Phosphorus 3.5 (2.7-4.5) mg/dL Pituitary panel 05/20/18 Range/Units 06:36 Sodium 137 (136-145) mEq/L Potassium 4.0 (3.5-5.1) mEq/L Chloride 102 (98-107) mEq/L Carbon Dioxide 26 (23-29) mEq/L BUN 17 (8-23) mg/dL Creatinine 1.31 H (0.70-1.30) mg/dL Glucose 148 H (70-105) mg/dL Calcium 10.0 (8.6-10.3) mg/dL Adrenal panel 05/20/18 Range/Units 06:36 Sodium 137 (136-145) mEq/L Potassium 4.0 (3.5-5.1) mEq/L Chloride 102 (98-107) mEq/L Carbon Dioxide 26 (23-29) mEq/L BUN 17 (8-23) mg/dL Creatinine 1.31 H (0.70-1.30) mg/dL Glucose 148 H (70-105) mg/dL Calcium 10.0 (8.6-10.3) mg/dL All other labs normal. - Attending Attestation The history, physical exam, and medical decision making was performed by myself in conjunction with the nurse practioner who saw the patient at the bedside. I was physically present and actively performed the examination and medical decision making. I have verified the accuracy of the Nurse practioners documentation with regards to communicating my history, physical exam findings, and medical decision making.
[2018-05-20 11:24] LABS: Adenovirus Not Detected (Not Detect); Bordetella Pertussis Not Detected (Not Detect); Chlamydophila pneumoniae Not Detected (Not Detect); Coronavirus 229E Not Detected (Not Detect); Coronavirus HKU1 Not Detected (Not Detect); Coronavirus NL63 Not Detected (Not Detect); Coronavirus OC43 DETECTED (Not Detect); Human Metapneumovirus Not Detected (Not Detect); Human Rhinovirus/Enterovirus Not Detected (Not Detect); Influenza A Subtype 2009 H1 Not Detected (Not Detect); Influenza A Untypeable Not Detected (Not Detect); Influenza B Not Detected (Not Detect); Mycoplasma pneumoniae Not Detected (Not Detect); Parainfluenza Virus 1 Not Detected (Not Detect); Parainfluenza Virus 2 Not Detected (Not Detect); Parainfluenza Virus 3 Not Detected (Not Detect); Parainfluenza Virus 4 Not Detected (Not Detect); Respiratory Syncytial Virus Not Detected (Not Detect)
[2018-05-20] MEDS: amLODIPine 5 MG TABLET PO SCH (13:22)
[2018-05-20] MEDS ORDERED: Dextrose Gel 15 GM/37.5 ML TUBE PO PRN ×2 (13:23)
[2018-05-20] MEDS ORDERED: *HR* Dextrose 50 % in Water (Syg) 50 ML SYRINGE IVP PRN (13:23)
[2018-05-20] MEDS ORDERED: D5% in Water 1,000 ML IVC PRN (13:23)
[2018-05-20] MEDS ORDERED: Dextrose 4 GM Chewable Tablets PO PRN ×2 (13:23)
[2018-05-20] MEDS: Ipratropium/Albuterol Neb 3 ML IH SCH ×4 (16:00→23:04)
[2018-05-20] MEDS: *HR* Heparin 5,000 UNIT/ML VIAL SQ SCH ×2 (16:58→20:12)
[2018-05-20] MEDS: MethylPREDNISolone 40 MG/ML VIAL IVP SCH (16:58)
--- NOTE | 2018-05-20 17:23 | ENT - Procedure Note ---
Date of procedure: 05/20/18 Pre-op diagnosis: angioedema Post-op diagnosis: same Procedure: Pre-operative Diagnosis: angioedema Post-operative Diagnosis Same Anesthesia: Topically applied 4% lidocaine with 0.05% oxymetazoline in a 50-50 mixture Provider: Naima Mercado CNP Procedure: Flexible nasolaryngoscopy Procedure in detail: After suitable time for the topically applied 50-50 mixture of 4% topical lidocaine and 1:1000 epinephrine anesthetic to take effect. The flexible nasal laryngoscope was used to examine both sides of the nasal cavity. The right side the nasal cavity appeared more patent and therefore the nasal laryngoscope was inserted through the nasal cavity past the nasopharynx oropharynx of the hypopharynx providing an excellent view the laryngeal structures. Once the exam was completed the scope was removed the patient tolerated the procedure well without complication or incident. Findings: No thick endolaryngeal mucus noted. No mucosal irregularity or edema of the lingual laryngeal surface of the epiglottis, the piriform sinuses, the aryepiglottic folds, the anterior commissure, the posterior commissure, the arytenoid mucosa or the false vocal folds. The true vocal folds display normal excursion during phonation and inhalation. There are no polyps, nodules or Anastasia''s edema seen on the true vocal folds. No evidence of Inter-arytenoid erythema, edema, or pachydermia. Airway patent. Impression: Airway patent. No evidence of airway compromise, pharyngeal or laryngeal edema. Anesthesia: topical Surgeon: Naima Mercado Was there an staff assistant present: No Condition: stable
--- NOTE | 2018-05-20 18:35 | Electrocardiograph Report ---
[place] [id number] Test Date: 2018-05-20 Pat Name: Jeb German Department: EXAM3 Room: [facility] Gender: M Compotype Operator: : [id number] Requested By: Cornelia Foley Order Number: [id number] Reading MD: Jojo Mosqueda Measurements Intervals Abie Rate: 59 P: 20 MA: 191 QRS: 55 QRSD: 110 T: 135 QT: 450 QTc: 446 Interpretive Statements Sinus rhythm Nonspecific T abnormalities, lateral leads Electronically Signed On 05-20-2018 18:34:03 EST by Jojo Mosqueda
[2018-05-20] MEDS: Insulin LISPRO 300 UNITS/3 ML VIAL SQ SCH (18:36)
[2018-05-20] MEDS: Famotidine 20 MG/2 ML VIAL IVP SCH (18:38)
[2018-05-21] MEDS: Insulin LISPRO 300 UNITS/3 ML VIAL SQ SCH ×4 (00:38→16:59)
[2018-05-21] MEDS: MethylPREDNISolone 40 MG/ML VIAL IVP SCH ×3 (00:39→17:08)
[2018-05-21] MEDS: Ipratropium/Albuterol Neb 3 ML IH SCH ×6 (03:10→23:03)
[2018-05-21] MEDS: *HR* Heparin 5,000 UNIT/ML VIAL SQ SCH ×3 (05:19→20:47)
[2018-05-21] MEDS: Famotidine 20 MG/2 ML VIAL IVP SCH ×2 (05:19→17:08)
[2018-05-21] MEDS: 0.9 % Sodium Chloride 1,000 ML IVC SCH ×2 (05:20→23:27)
[2018-05-21 05:39] LABS: Calcium 9.3 mg/dL (8.6-10.3); Potassium 4.2 mEq/L (3.5-5.1)
[2018-05-21 05:42] LABS: Basophils % 0.1 %; Hemoglobin 13.5 g/dL (12.9-16.9); Lymphocytes # 0.8 K/mcL (0.6-4.6); Lymphocytes % 5.2 %; Mean Corpuscular HGB Conc 32.9 g/dL (31.6-35.5); Mean Platelet Volume 10.9 fL (9.4-12.4); Monocytes # 0.5 K/mcL (0.0-1.3); Monocytes % 3.3 %; Platelet Count 210 K/mcL (140-400); Red Blood Count 4.36 M/mcL (4.19-5.50); Red Cell Distribution Width 13.5 % (11.5-14.5); Segmented Neutrophils % 90.4 %
[2018-05-21 07:49] LABS: Estimated Average Glucose 151 mg/dl; Hemoglobin A1C 6.9 %
[2018-05-21 08:28] LABS: Bilirubin,Urine Negative (Negative); Blood,Urine Negative (Negative); Clarity,Urine Clear (Clear); Color,Urine Yellow (Yellow); Glucose,Urine (UA) >=1000 mg/dL (Normal); Ketones,Urine Negative (Negative); Leukocyte Esterase,Urine Negative (Negative); Nitrite,Urine Negative (Negative); PH,Urine 5.5 pH Units (5.0-8.0); Protein,Urine Negative (Neg-Trace); Specific Gravity,Urine 1.026 (1.010-1.025); Urobilinogen,Urine Normal (Normal)
[2018-05-21] MEDS: Levofloxacin 750 MG/150 ML 750 MG/150 ML BAG IVPB SCH (09:39)
[2018-05-21] MEDS: Pantoprazole 40 MG VIAL IVP SCH (09:39)
[2018-05-21] MEDS: Aspirin Enteric Coated 81 MG Tablet PO SCH (09:40)
[2018-05-21] MEDS: amLODIPine 5 MG TABLET PO SCH (09:40)
--- NOTE | 2018-05-21 12:14 | Internal Med Progress Note ---
Hospitalist Progress Note - Encounter Date of Encounter: 05/21/18 Time of Encounter: 08:30 - Subjective Interval History: Patient was seen and examined at bedside. Reports that the lower lip swelling has improved significantly and is almost resolved, denies tingling around his mouth or tongue swelling. He does report that he continues to wheeze and has productive cough with minimal improvement. He denies chest pain or palpitations I discussed that I understand that he has an appointment with immunology tomorrow however given his respiratory status I discussed that we will probably have to reschedule that appointment. He is in agreement. I discussed that I will let the nurses know to provide him with a new appointment date and time. - Exam Vitals: Temp Pulse Resp BP Pulse Ox 97.8 F 68 16 148/87 95 05/21/18 10:00 05/21/18 10:00 05/21/18 11:40 05/21/18 10:00 05/21/18 11:40 Exam: General: Patient is alert, oriented,overweight, speaks in full sentences, not in any acute distress Head: atraumatic, normocephalic, Eye: normal appearance, PERRL, no scleral icterus, no conjunctival injection ENT mucous membrane is moist, lower lip swelling has resolved Neck: normal inspection, trachea midline, full ROM, no carotid bruits, no stridor Chest: normal inspection, symmetric chest rise Respiratory: Good respiratory effort. Bilateral wheezing in the anterior chest, could not appreciate any crackles Cardiovascular: Regular rate and rhythm. s1 and s2 No clicks, rubs, gallops, or murmors. Abdomen: Bowel sounds present normoactive x-4 quadrants. Abdomen is soft, nondistended. no Epigastric tenderness. No guarding or rebound. No organomegaly noted, obese musculoskeletal: Spontaneously moving all extremities ( left lower extremity in support) . no edema, no calf tenderness Skin: warm, dry, intact. Neuro: Alert and oriented x4. No focal deficit Psych: Patient's affect is normal - Assessment and Plan (1) Acute exacerbation of chronic obstructive pulmonary disease (COPD) Current Visit: Yes Status: Acute Assessment and Plan: continue with 40 mg Q8H - as he continues to wheeze respiratory viral panel - positive for bell virus levaquin Urine Antigen- negative sputum cx - in process DUo-nebs Q4H keep oxygen saturation above 92% ( was recently treated with Zpack as OP) - without improvement (2) Angioedema Current Visit: Yes Status: Acute Assessment and Plan: Most likely secondary to the cashews that he had prior to going to bed and woke up with symptoms. was recently seen at PCP office for COPD exacerbation on 05/12 and was staretd on Zpack with worsening wheezing ? due to Zithromax ENT is on board CT neck- The soft tissues of the neck are unremarkable keep epinephrine pen at bedside- will need to be discharged on an EPI pen duo-nebs Solumedrol 40mg Q8H- will transition to by mouth taper on discharge H1/H2 blockers: Benadryl 25-50 mg IVPB Q 4-6 hrs and Ranitidine 150 mg IVPB BID GI prophylaxis Discontinue ACEi/ARBs from home medications (3) Allergic reaction Current Visit: Yes Status: Acute Assessment and Plan: Patient reports that he ate cashews before bed and woke up with the swollen lower lip vs azithromycin prescribed last week Management as above (4) CAD (coronary artery disease) Current Visit: No Status: Chronic Assessment and Plan: continue home medications (5) HTN (hypertension) Current Visit: No Status: Chronic Assessment and Plan: hold all ACEI and ARB continue home medications if not CI and if he is not hypotensive (6) Hypothyroid Current Visit: No Status: Chronic Assessment and Plan: continue synthroid (7) DVT prophylaxis Current Visit: No Status: Acute Assessment and Plan: heparin sc - Time Spent with Patient Total time spent is greater than 50% in coordination of care (as documented) at patient's floor/unit and/or counseling patient: Internal Medicine: Result - Labs CBC & Chem 7: 05/21/18 04:41 05/21/18 04:41 Labs: Short CBC 05/21/18 Range/Units 04:41 WBC 14.4 H (4.3-11.1) K/mcL Hgb 13.5 (12.9-16.9) g/dL Hct 41.0 (37.5-50.1) % Plt Count 210 (140-400) K/mcL Neutrophils # 13.0 H (1.6-8.9) K/mcL BMP 05/21/18 04:41 Sodium 135 L Potassium 4.2 Chloride 101 Carbon Dioxide 20 L BUN 25 H Creatinine 1.53 H Glucose 319 H Calcium 9.3 Urine 05/21/18 Range/Units 03:50 Urine Color Yellow (Yellow) Urine Clarity Clear (Clear) Urine pH 5.5 (5.0-8.0) pH Units Ur Specific [place] 1.026 H (1.010-1.025) Urine Protein Negative (Neg-Trace) mg/dL Urine Glucose (UA) >=1000 H (Normal) mg/dL Consult Discharge Plan - Plan Referrals: Kenny Christopher DO [Primary Care Provider] - (2) Angioedema Qualifiers: Encounter type: initial encounter Qualified Code(s): T78.3XXA - Angioneurotic edema, initial encounter (3) Allergic reaction Qualifiers: Encounter type: initial encounter Qualified Code(s): T78.40XA - Allergy, unspecified, initial encounter (4) CAD (coronary artery disease) Qualifiers: Coronary Disease-Associated Artery/Lesion type: [place] artery [place] vs. transplanted heart: [place] heart Associated angina: without angina Qualified Code(s): I25.10 - Atherosclerotic heart disease of [place] coronary artery without angina pectoris (5) HTN (hypertension) Qualifiers: Hypertension type: essential hypertension Qualified Code(s): I10 - Essential (primary) hypertension (6) Hypothyroid Qualifiers: Hypothyroidism type: acquired Qualified Code(s): E03.9 - Hypothyroidism, unspecified
[2018-05-21] MEDS ORDERED: Nitroglycerin 0.4 MG TAB.SUBL SL PRN (12:16)
[2018-05-21] MEDS: Insulin DETEMIR 100 UNIT/ML X5UNITS SQ SCH (20:44)
[2018-05-22] MEDS: Insulin LISPRO 300 UNITS/3 ML VIAL SQ SCH ×4 (01:08→18:21)
[2018-05-22] MEDS: MethylPREDNISolone 40 MG/ML VIAL IVP SCH ×3 (01:09→17:01)
[2018-05-22] MEDS: Ipratropium/Albuterol Neb 3 ML IH SCH ×6 (03:28→23:43)
[2018-05-22] MEDS: *HR* Heparin 5,000 UNIT/ML VIAL SQ SCH ×3 (05:32→20:53)
[2018-05-22] MEDS: Famotidine 20 MG/2 ML VIAL IVP SCH ×2 (05:32→17:01)
[2018-05-22 05:48] LABS: Hematocrit 37.5 % (37.5-50.1); Hemoglobin 12.4 g/dL (12.9-16.9); Mean Corpuscular HGB Conc 33.1 g/dL (31.6-35.5); Mean Corpuscular Hemoglobin 30.3 pg (28.0-33.3); Mean Corpuscular Volume 91.7 fL (83.0-100.0); Mean Platelet Volume 11.2 fL (9.4-12.4); Platelet Count 217 K/mcL (140-400); Red Blood Count 4.09 M/mcL (4.19-5.50); Red Cell Distribution Width 13.6 % (11.5-14.5)
[2018-05-22 06:06] LABS: BUN/Creatinine Ratio 19 (6-26); Blood Urea Nitrogen 24 mg/dL (8-23); Calcium 8.8 mg/dL (8.6-10.3); Carbon Dioxide 21 mEq/L (23-29); Chloride 106 mEq/L (98-107); Glucose 207 mg/dL (70-105); Osmolality,Calculated 294 (280-300); Potassium 4.1 mEq/L (3.5-5.1); Sodium 137 mEq/L (136-145); eGFR For Non-African Americans 57 (> 60)
[2018-05-22] MEDS ORDERED: amLODIPine 5 MG TABLET PO SCH (09:00)
[2018-05-22] MEDS: Aspirin Enteric Coated 81 MG Tablet PO SCH (09:37)
[2018-05-22] MEDS: Metoprolol XL (24 HR) Succ 25 MG TAB.ER.24H PO SCH (09:37)
[2018-05-22] MEDS: Pantoprazole 40 MG VIAL IVP SCH (09:37)
[2018-05-22] MEDS: Levofloxacin 750 MG/150 ML 750 MG/150 ML BAG IVPB SCH (09:38)
--- NOTE | 2018-05-22 11:57 | Internal Med Progress Note ---
Hospitalist Progress Note - Encounter Date of Encounter: 05/22/18 Time of Encounter: 08:00 - Subjective Interval History: Patient was seen and examined at bedside. Continues to require oxygen and has productive cough. He does not as though his respiratory status is improving. All questions were answered. I discussed the new chest x-ray findings with the patient and he understands that he will need to give the antibiotics and steroids some time to work. Currently tolerating by mouth diet He denies fever, chills, chest pain or palpitations. - Exam Vitals: Temp Pulse Resp BP Pulse Ox 97.6 F 84 20 141/76 96 05/22/18 09:45 05/22/18 09:45 05/22/18 11:50 05/22/18 09:45 05/22/18 11:50 Exam: General: Patient is alert, oriented,overweight, speaks in full sentences, not in any acute distress Head: atraumatic, normocephalic, Eye: normal appearance, PERRL, no scleral icterus, no conjunctival injection ENT mucous membrane is moist, lower lip swelling has resolved Neck: normal inspection, trachea midline, full ROM, no carotid bruits, no stridor Chest: normal inspection, symmetric chest rise Respiratory: Good respiratory effort. Bilateral wheezing in the anterior chest, bilateral crackles in the posterior lung field R>L Cardiovascular: Regular rate and rhythm. s1 and s2 No clicks, rubs, gallops, or murmors. Abdomen: Bowel sounds present normoactive x-4 quadrants. Abdomen is soft, nondistended. no Epigastric tenderness. No guarding or rebound. No or ganomegaly noted, obese musculoskeletal: Spontaneously moving all extremities ( left lower extremity in support) . no edema, no calf tenderness Skin: warm, dry, intact. Neuro: Alert and oriented x4. No focal deficit Psych: Patient's affect is normal - Assessment and Plan (1) Acute exacerbation of chronic obstructive pulmonary disease (COPD) Current Visit: Yes Status: Acute Assessment and Plan: CURB 65 of 2 continue with 40 mg Q8H - as he continues to wheeze respiratory viral panel - positive for bell virus levaquin Urine Antigen- negative sputum cx - did not meet criteria- will resend 05/22 DUo-nebs Q4H keep oxygen saturation above 92% ( was recently treated with Zpack as OP) - without improvement / failed OP treatment (2) Right lower lobe pneumonia Current Visit: Yes Status: Acute Assessment and Plan: CXR on 05/22 with 1. Increasing right basilar lung infiltrate which may be related to atelectasis versus pneumonia. Follow-up radiographs are recommended. continue ABx and management as above resend sputum cx CURB 65 of 2 (3) Acute respiratory failure with hypoxia Current Visit: Yes Status: Acute Assessment and Plan: secondary to above management as above once his respiratory status has improved will evaluate him for home oxygen (4) Angioedema Current Visit: Yes Status: Acute Assessment and Plan: Most likely secondary to the cashews that he had prior to going to bed and woke up with symptoms. was recently seen at PCP office for COPD exacerbation on 05/12 and was staretd on Zpack with worsening wheezing ? due to Zithromax ENT is on board CT neck- The soft tissues of the neck are unremarkable keep epinephrine pen at bedside- will need to be discharged on an EPI pen duo-nebs Solumedrol 40mg Q8H- will transition to by mouth taper on discharge H1/H2 blockers: Benadryl 25-50 mg IVPB Q 4-6 hrs and Ranitidine 150 mg IVPB BID Discontinue ACEi/ARBs from home medications nursing staff aware that he will need his immunology appointment rescheduled for next week as he is wheezing and requires oxygen (5) Allergic reaction Current Visit: Yes Status: Acute Assessment and Plan: Patient reports that he ate cashews before bed and woke up with the swollen lower lip vs azithromycin prescribed last week Management as above (6) CAD (coronary artery disease) Current Visit: No Status: Chronic Assessment and Plan: continue home medications (7) HTN (hypertension) Current Visit: No Status: Chronic Assessment and Plan: hold all ACEI and ARB continue home medications if not CI and if he is not hypotensive (8) Hypothyroid Current Visit: No Status: Chronic Assessment and Plan: continue synthroid (9) DVT prophylaxis Current Visit: No Status: Acute Assessment and Plan: heparin sc - Time Spent with Patient Total time spent is greater than 50% in coordination of care (as documented) at patient's floor/unit and/or counseling patient: Internal Medicine: Result - Labs CBC & Chem 7: 05/22/18 05:18 05/22/18 05:18 Labs: Short CBC 05/22/18 Range/Units 05:18 WBC 18.4 H (4.3-11.1) K/mcL Hgb 12.4 L (12.9-16.9) g/dL Hct 37.5 (37.5-50.1) % Plt Count 217 (140-400) K/mcL BMP 05/22/18 05:18 Sodium 137 Potassium 4.1 Chloride 106 Carbon Dioxide 21 L BUN 24 H Creatinine 1.24 Glucose 207 H Calcium 8.8 - Impressions Impressions Head CT 05/20/18 08:13 IMPRESSION: 1. No acute intracranial abnormality. 2. 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 This appears unchanged. This may represent a primary tumor versus metastatic disease. D/ / 05/20/2018 09:03:10 Elia Childers MD / faina Interpreting Provider: Elia Childers MD Chest X-Ray 05/22/18 06:00 IMPRESSION: 1. Increasing right basilar lung infiltrate which may be related to atelectasis versus pneumonia. Follow-up radiographs are recommended. D/ / 05/22/2018 08:11:33 Keyon Fulton MD / Kate Beckett Interpreting Provider: Keyon Fulton MD Consult Discharge Plan - Plan Referrals: Kenny Christopher DO [Primary Care Provider] - Annette Llanos MD [Partnered Physician] - 05/26/18 12:30 pm (follow up as scheduled) (2) Right lower lobe pneumonia Qualifiers: Pneumonia type: due to unspecified organism Qualified Code(s): J18.1 - Lobar pneumonia, unspecified organism (4) Angioedema Qualifiers: Encounter type: initial encounter Qualified Code(s): T78.3XXA - Angioneurotic edema, initial encounter (5) Allergic reaction Qualifiers: Encounter type: initial encounter Qualified Code(s): T78.40XA - Allergy, unspecified, initial encounter (6) CAD (coronary artery disease) Qualifiers: Coronary Disease-Associated Artery/Lesion type: [place] artery [place] vs. transplanted heart: [place] heart Associated angina: without angina Qualified Code(s): I25.10 - Atherosclerotic heart disease of [place] coronary artery withou t angina pectoris (7) HTN (hypertension) Qualifiers: Hypertension type: essential hypertension Qualified Code(s): I10 - Essential (primary) hypertension (8) Hypothyroid Qualifiers: Hypothyroidism type: acquired Qualified Code(s): E03.9 - Hypothyroidism, unspecified
--- NOTE | 2018-05-22 13:35 | Electrocardiograph Report ---
[facility] Test Date: 2018-05-20 Pat Name: Jeb German Department: EXAM3 Room: [facility] Gender: M Learning Specialist: : 1940 Requested By: Jakub Richardson Order Number: [id number] Reading MD: Gage Mccain Measurements Intervals [place] Rate: 68 P: 31 RI: 167 QRS: -21 QRSD: 98 T: 29 QT: 394 QTc: 419 Interpretive Statements Sinus rhythm Borderline left axis deviation Low voltage, precordial leads RSR' in V1 or V2, right VCD or RVH Electronically Signed On 05-22-2018 13:34:26 EST by Gage Mccain
[2018-05-22] MEDS: Insulin DETEMIR 100 UNIT/ML X5UNITS SQ SCH (20:53)
[2018-05-23] MEDS: MethylPREDNISolone 40 MG/ML VIAL IVP SCH ×3 (00:47→16:54)
[2018-05-23] MEDS: Insulin LISPRO 300 UNITS/3 ML VIAL SQ SCH ×4 (00:50→19:21)
[2018-05-23] MEDS: Ipratropium/Albuterol Neb 3 ML IH SCH ×5 (03:33→19:40)
[2018-05-23 04:35] LABS: Hematocrit 36.5 % (37.5-50.1); Hemoglobin 12.2 g/dL (12.9-16.9); Mean Corpuscular HGB Conc 33.4 g/dL (31.6-35.5); Mean Corpuscular Hemoglobin 30.5 pg (28.0-33.3); Mean Corpuscular Volume 91.3 fL (83.0-100.0); Mean Platelet Volume 11.3 fL (9.4-12.4); Platelet Count 203 K/mcL (140-400); Red Cell Distribution Width 13.7 % (11.5-14.5)
[2018-05-23 04:55] LABS: BUN/Creatinine Ratio 21 (6-26); Blood Urea Nitrogen 27 mg/dL (8-23); Calcium 8.5 mg/dL (8.6-10.3); Carbon Dioxide 21 mEq/L (23-29); Chloride 105 mEq/L (98-107); Glucose 257 mg/dL (70-105); Osmolality,Calculated 296 (280-300); Potassium 4.2 mEq/L (3.5-5.1); Sodium 136 mEq/L (136-145); eGFR For Non-African Americans 55 (> 60)
[2018-05-23] MEDS: *HR* Heparin 5,000 UNIT/ML VIAL SQ SCH ×3 (05:59→22:53)
[2018-05-23] MEDS: Famotidine 20 MG/2 ML VIAL IVP SCH ×2 (06:00→16:54)
[2018-05-23] MEDS: Levofloxacin 750 MG/150 ML 750 MG/150 ML BAG IVPB SCH (09:45)
[2018-05-23] MEDS: Spironolactone 25 MG TABLET PO SCH (09:45)
[2018-05-23] MEDS: VITAMIN D3 PO SCH (09:45)
[2018-05-23] MEDS: CALCIUM CARBONATE PO SCH (09:45)
[2018-05-23] MEDS: Aspirin Enteric Coated 81 MG Tablet PO SCH (09:45)
[2018-05-23] MEDS: Metoprolol XL (24 HR) Succ 25 MG TAB.ER.24H PO SCH ×2 (09:45→12:35)
[2018-05-23] MEDS ORDERED: Aspirin 81 MG TAB.CHEW PO ONE (11:11)
--- NOTE | 2018-05-23 11:57 | Cardiology Consult Note ---
Date of Encounter: 05/23/18 Time of Encounter: 11:20 Assessment and Plan (1) Atypical chest pain Current Visit: Yes Status: Acute EKG shows sinus rhythm, Q wave in lead III, no new ST-T wave changes appreciated although there was baseline artifacts in the limb leads. Levofloxacin has been reported to cause chest pain and given the temporal relationship with patient's symptom, this is not likely to be an acute coronary syndrome. Follow troponin and repeat EKG. (2) CAD (coronary artery disease) Current Visit: No Status: Chronic Continue aspirin, statin and beta lorena. Qualifiers: Coronary Disease-Associated Artery/Lesion type: [place] artery [place] vs. transplanted heart: [place] heart Associated angina: without angina Qualified Code(s): I25.10 - Atherosclerotic heart disease of [place] coronary artery without angina pectoris (3) Acute exacerbation of chronic obstructive pulmonary disease (COPD) Current Visit: Yes Status: Acute Consider alternative antibiotics Discussion w patient/family: The assessment and plan as outlined above was discussed with the patient and/or family members who expressed understanding and agreement. All questions were answered. Thank you for involving us in the care of your patient. Please call with any questions. History of Present Illness Consult date: 05/23/18 Requesting physician: Camryn Dominique History of present illness: Mr. German is a 77 year old male Mr. German is a pleasant 77-year-old gentleman with history of CAD status post stent about 16 years ago[address] Beckett at [place]. He was admitted for COPD exacerbation and was started on intravenous levofloxacin this morning. Patient described right-sided chest pain moving across to the left as soon as levofloxacin was started. He states that this is totally different from the pain he had during his [facility] in [place]. Chest pain promptly resolved after lev ofloxacin was discontinued. 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 - Social History Smoking Status: Current some day smoker Smokeless Tobacco Status: No Alcohol use: none Drug use: none - Family History Mother Living Status: Hx Family Cardiac Disorders: Yes Hx Family Respiratory Disorders: Yes Hx Family Cancer: No Hx Family GI Disorders: No Hx Family Endocrine Disorder: No Hx Family Neuromuscular Disorders: No Hx Family Neurologic Disorders: No Hx Family HEENT Disorders: No Hx Family Autoimmune Disorders: No Father Living Status: Hx Family Cardiac Disorders: Yes Hx Family Neurologic Disorders: No Medications and Allergies Cholecalciferol (Vitamin D3) [Vitamin D3] 4,000 unit PO DAILY 04/06/18 [History] Levothyroxine Sodium [Levoxyl] 88 mcg PO DAILY@0630 04/06/18 [History] Metoprolol Succinate [Toprol Xl] 25 mg PO DAILY 04/06/18 [History] Potassium Chloride [Klor-Con 10] 10 meq PO BID 04/06/18 [History] Spironolactone [Aldactone] 25 mg PO DAILY 04/06/18 [History] Aspirin Enteric Coated [Aspirin EC] 81 mg PO DAILY #30 tablet. 04/07/18 [Rx] Acetaminophen [Pain Reliever] 500 mg PO Q6H PRN 05/06/18 [History] Albuterol Sulfate [Albuterol Inhaler] 2 puff IH Q6H PRN 05/06/18 [History] Calcium Carbonate [Tums] 500 mg PO Q4HR PRN 05/06/18 [History] Calcium Carbonate/Vitamin D3 [Caltrate 600 + D Soft Chew Tab] 2 each PO DAILY 05/06/18 [History] Nitroglycerin [Nitrostat] 0.4 mg SL Q5M PRN 05/06/18 [History] Atorvastatin [Lipitor] 40 mg PO DAILY 05/22/18 [History] Allergy/AdvReac Type Severity Reaction Status Date / Time ezetimibe [From Vytorin] AdvReac Cough Verified 05/05/18 07:59 simvastatin [From Vytorin] AdvReac Cough Verified 05/05/18 07:59 All Systems Review: The remainder of the systems were reviewed and are negative - Constitutional Constitutional: no fatigue - EENT Eyes: no blurred vision Nose, mouth and throat: no bleeding gums - Cardiovascular Cardiovascular: no dyspnea at rest, no irregular heart rhythm, no lightheadedness, no orthopnea, no palpitations, no paroxysmal nocturnal dyspnea, no syncope - Respiratory Respiratory: no hemoptysis - Gastrointestinal Gastrointestinal: no abdominal pain - Genitourinary Genitourinary: no hematuria - Integumentary Integumentary: no unusual bruising - Neurological Neurological: no abnormal speech - Psychiatric Psychiatric: no panic attacks Physical Examination Vital Signs, Last 4 Hours Temp Pulse Resp BP Pulse Ox 05/23/18 11:47 16 94 05/23/18 10:50 97.5 F L 63 19 165/90 97 General: Conversant Neck: No JVD Cardiac: Reg Rate and Rhythm, Normal S1 and S2 Lungs: Normal Breath Sounds, No Wheeze, Rales, Rhonchi Neuro: Alert and responsive Abdomen: Soft, Non-Tender Musculoskeletal: No Chest Wall Tenderness Extremities: No Edema Results 05/23/18 03:57 05/23/18 03:57 Lab Results 05/23/18 05/23/18 05/23/18 03:57 03:57 10:59 WBC 12.8 H Hgb 12.2 L Hct 36.5 L Plt Count 203 Sodium 136 Potassium 4.2 Chloride 105 Carbon Dioxide 21 L BUN 27 H Creatinine 1.28 Glucose 257 H Calcium 8.5 L Troponin I < 0.03 Consult Discharge Plan - Plan Referrals: Kenny Christopher DO [Primary Care Provider] - Annette Llanos MD [Partnered Physician] - 05/26/18 12:30 pm (follow up as scheduled)
[2018-05-23] MEDS ORDERED: Azithromycin 250 MG in D5% in Water 250 ML IVPB SCH (15:00)
[2018-05-23] MEDS: cefTRIAXone 1,000 MG in 0.9 % Sodium Chloride Mini Bag 100 ML IVPB SCH (16:54)
[2018-05-23] MEDS: Insulin DETEMIR 100 UNIT/ML X5UNITS SQ SCH (22:53)
[2018-05-24] MEDS: Ipratropium/Albuterol Neb 3 ML IH SCH ×5 (00:30→15:48)
[2018-05-24] MEDS: MethylPREDNISolone 40 MG/ML VIAL IVP SCH (06:50)
[2018-05-24] MEDS: Famotidine 20 MG/2 ML VIAL IVP SCH (06:50)
[2018-05-24] MEDS: *HR* Heparin 5,000 UNIT/ML VIAL SQ SCH ×2 (06:51→13:48)
[2018-05-24] MEDS: Insulin LISPRO 300 UNITS/3 ML VIAL SQ SCH ×3 (07:02→13:45)
[2018-05-24 07:36] LABS: Hematocrit 37.4 % (37.5-50.1); Hemoglobin 12.4 g/dL (12.9-16.9); Mean Corpuscular HGB Conc 33.2 g/dL (31.6-35.5); Mean Corpuscular Hemoglobin 30.5 pg (28.0-33.3); Mean Corpuscular Volume 91.9 fL (83.0-100.0); Mean Platelet Volume 11.3 fL (9.4-12.4); Platelet Count 201 K/mcL (140-400); Red Blood Count 4.07 M/mcL (4.19-5.50); Red Cell Distribution Width 13.8 % (11.5-14.5)
[2018-05-24 07:48] LABS: BUN/Creatinine Ratio 25 (6-26); Blood Urea Nitrogen 30 mg/dL (8-23); Calcium 8.6 mg/dL (8.6-10.3); Carbon Dioxide 25 mEq/L (23-29); Chloride 104 mEq/L (98-107); Glucose 248 mg/dL (70-105); Osmolality,Calculated 296 (280-300); Potassium 4.2 mEq/L (3.5-5.1); Sodium 136 mEq/L (136-145); eGFR For Non-African Americans 59 (> 60)
[2018-05-24] MEDS: VITAMIN D3 PO SCH (10:07)
[2018-05-24] MEDS: CALCIUM CARBONATE PO SCH (10:07)
[2018-05-24] MEDS: Metoprolol XL (24 HR) Succ 25 MG TAB.ER.24H PO SCH (10:16)
[2018-05-24] MEDS: Spironolactone 25 MG TABLET PO SCH (10:16)
[2018-05-24] MEDS: Aspirin Enteric Coated 81 MG Tablet PO SCH (10:16)
--- NOTE | 2018-05-24 12:31 | Internal Med Progress Note ---
Hospitalist Progress Note - Encounter Date of Encounter: 05/23/18 Time of Encounter: 12:31 - Subjective Interval History: Pt seen and examined at bedside c/o right sided cp radiating across chest to left while levaquin was running, resolved after it was d/federico. No SOB or papitations - Exam Vitals: Temp Pulse Resp BP Pulse Ox 98.3 F 63 16 159/86 93 05/24/18 11:58 05/24/18 11:58 05/24/18 11:58 05/24/18 11:58 05/24/18 11:58 Exam: General: Patient is alert, oriented,overweight, speaks in full sentences, not in any acute distress Head: atraumatic, normocephalic, Eye: normal appearance, PERRL, no scleral icterus, no conjunctival injection ENT mucous membrane is moist, No lower lip swelling Neck: normal inspection, trachea midline, full ROM Respiratory: Good respiratory effort. faint wheezes at right base Cardiovascular: Regular rate and rhythm. s1 and s2 No clicks, rubs, gallops, or murmors. Abdomen: Bowel sounds present normoactive x-4 quadrants. Abdomen is soft, nondistended. no Epigastric tenderness. musculoskeletal: Spontaneously moving all extremities ( left lower extremity in support) . no edema, no calf tenderness Skin: warm, dry, intact. Neuro: Alert and oriented x4. No focal deficit - Summary of Assessment and Plan Summary of Assessment and Plan: (1) Acute exacerbation of chronic obstructive pulmonary disease (COPD) - c/w Solumedrol...taper respiratory viral panel - positive for bell virus d/c levaquin; pt developed cp suring infusion Urine Antigen- negative DUo-nebs Q4H keep oxygen saturation above 92% (2) Right lower lobe pneumonia CXR on 05/22 with 1. Increasing right basilar lung infiltrate which may be related to atelectasis versus pneumonia. c/w abx (3) Acute respiratory failure with hypoxia secondary to above management as above once his respiratory status has improved will evaluate him for home oxygen (4) Angioedema Most likely secondary to the cashews that he had prior to going to bed and woke up with symptoms. was recently seen at PCP office for COPD exacerbation on 05/12 and was staretd on Zpack with worsening wheezing ? due to Zithromax ENT is on board CT neck- The soft tissues of the neck are unremarkable CT head w/ mass, outpt f/u w/ Neurosurgeon who did original pituitary sx keep epinephrine pen at bedside- will need to be discharged on an EPI pen duo-nebs Solumedrol...taper H1/H2 blockers: Benadryl 25-50 mg IVPB Q 4-6 hrs and Ranitidine 150 mg IVPB BID (5) Allergic reaction Patient reports that he ate cashews before bed and woke up with the swollen lower lip vs azithromycin prescribed last week Management as above (6) CAD (coronary artery disease) continue home medications (7) HTN (hypertension) continue home medications if not CI and if he is not hypotensive (8) Hypothyroid continue synthroid Chest Pain, resolved - likely secondary to Levaquin - EKG w/ ? ST elevations vs artifact - Cardio called - trops neg x 5 - tele monitoring (9) DVT prophylaxis heparin sc - Time Spent with Patient Total time spent is greater than 50% in coordination of care (as documented) at patient's floor/unit and/or counseling patient: Internal Medicine: Result - Labs CBC & Chem 7: 05/24/18 06:50 05/24/18 06:50 Labs: Short CBC 05/24/18 Range/Units 06:50 WBC 9.8 (4.3-11.1) K/mcL Hgb 12.4 L (12.9-16.9) g/dL Hct 37.4 L (37.5-50.1) % Plt Count 201 (140-400) K/mcL BMP 05/24/18 06:50 Sodium 136 Potassium 4.2 Chloride 104 Carbon Dioxide 25 BUN 30 H Creatinine 1.20 Glucose 248 H Calcium 8.6 Cardiac Enzymes 05/23/18 05/23/18 Range/Units 16:42 23:04 Troponin I < 0.03 0.03 (< 0.04) ng/mL Consult Discharge Plan - Plan Instructions: Acute Respiratory Distress Syndrome (DC) Additional Instructions: Discharging with [place] Home oxygen - [phone] if any questions/concerns. Go to nearest emergency room for any new or worsening symptoms. Avoid nut products. Carry epi pen at all times. Finish entire antibiotic prescription even if you are feeling better. Referrals: Neurosurgeon [Other] (Please call your neurosurgeon to schedule a followup re: sinus mass.) Kenny Christopher, [Primary Care Provider] - (Please call on Saturday to make a 3-5 followup appointment) Annette Llanos MD [Partnered Physician] - 05/26/18 12:30 pm (follow up as scheduled) Prescriptions: Cefdinir [Omnicef] 300 mg PO BID #5 capsule EPINEPHrine [Epipen] 0.3 mg IM ONCE PRN #1 auto.injct PRN Reason: Allergic Reaction predniSONE [PredniSONE] 10 mg PO DAILY #60 tablet
--- NOTE | 2018-05-24 12:33 | Discharge Summary ---
- NOTES TO OUTPATIENT PROVIDER Notes to Outpatient Provider: Patient needs folow up with Neurosurgery Orders not resulted at time of discharge: Pending orders 05/20/18 08:19 Bedside Swallowing Evaluation [EVAL] Stat 05/24/18 00:37 EKG [ECG 12 lead ECG] [ECG] Stat 05/25/18 04:00 BMP [Basic Metabolic Panel] AM 0400 CBC no Diff [Complete Blood Count w/o Diff] [HEME] AM 0400 Date of Encounter: 05/24/18 Time of Encounter: 12:31 - Discharge Diagnosis (1) Acute exacerbation of chronic obstructive pulmonary disease (COPD) Priority: Secondary Status: Acute (2) Acute respiratory failure with hypoxia Priority: Primary Status: Acute (3) Angioedema Priority: Secondary Status: Acute Qualifiers: Encounter type: initial encounter Qualified Code(s): T78.3XXA - Angioneurotic edema, initial encounter (4) Right lower lobe pneumonia Priority: Secondary Status: Acute Qualifiers: Pneumonia type: due to unspecified organism Qualified Code(s): J18.1 - Lobar pneumonia, unspecified organism (5) YANE (acute kidney injury) Priority: Secondary Status: Acute (6) Skull mass Priority: Secondary Status: Acute (7) CAD (coronary artery disease) Priority: Secondary Status: Chronic Qualifiers: Coronary Disease-Associated Artery/Lesion type: knik artery [place] vs. transplanted heart: knik heart Associated angina: without angina Qualified Code(s): I25.10 - Atherosclerotic heart disease of knik coronary artery without angina pectoris Hospital course: Mr. German is a 77 year old male with history of hypertension, COPD, CAD with HI in 2002, uptake no tumor, pituitary tumor status post surgery 2010 presented to the with lower lip swelling of unknown etiology. Pt also noted to be in COPD exacerbation was was recently treated with Zpak w/o improvement. Pt was given solumedrol 125 mg in the ED continue with 40 mg Q8H, respiratory viral panel sent which came back positive for bell virus. CXR showed increasing RLL infiltrate and Pt started on levaquin. Pt also placed on oxygen. In regards to angioedema, ENT was consulted. Angioedema was thought to be most likely secondary to the cashews that he had prior to going to bed and woke up with symptoms. 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 Angioedema improved with steroids. Course complicated by atypical chest pain while getting infusion of IV levaquin. EKQ showed new qwave in III and and per Cardio questionable ST elevations from baseline due to artifact. Chest pain resolved after Levaquin was discontinued. Troponins neg x 2. Clincally patient improved significantly however patient still requiring oxygen thus set up for home oxygen. Pt medically stable for discharge. Patient will need outptaitient follow up Neurosurgery and PCP - Time Spent with Patient Total time spent providing and/or coordinating discharge services: - Discharge Medications Prescriptions: New Cefdinir [Omnicef] 300 mg PO BID #5 capsule predniSONE [PredniSONE] 10 mg PO DAILY #60 tablet EPINEPHrine [Epipen] 0.3 mg IM ONCE PRN #1 auto.injct PRN Reason: Allergic Reaction Continue Levothyroxine Sodium [Levoxyl] 88 mcg PO DAILY@0630 Metoprolol Succinate [Toprol Xl] 25 mg PO DAILY Spironolactone [Aldactone] 25 mg PO DAILY Cholecalciferol (Vitamin D3) [Vitamin D3] 4,000 unit PO DAILY Aspirin Enteric Coated [Aspirin EC] 81 mg PO DAILY #30 tablet. Acetaminophen [Pain Reliever] 500 mg PO Q6H PRN PRN Reason: Pain Albuterol Sulfate [Albuterol Inhaler] 2 puff IH Q6H PRN PRN Reason: Shortness Of Breath/Wheezing Calcium Carbonate [Tums] 500 mg PO Q4HR PRN PRN Reason: Dyspepsia Calcium Carbonate/Vitamin D3 [Caltrate 600 + D Soft Chew Tab] 2 each PO DAILY Nitroglycerin [Nitrostat] 0.4 mg SL Q5M PRN PRN Reason: Chest Pain Atorvastatin [Lipitor] 40 mg PO DAILY Discontinued Potassium Chloride [Klor-Con 10] 10 meq PO BID Home Medications: Cholecalciferol (Vitamin D3) [Vitamin D3] 4,000 unit PO DAILY 04/06/18 [History] Levothyroxine Sodium [Levoxyl] 88 mcg PO DAILY@0630 04/06/18 [History] Metoprolol Succinate [Toprol Xl] 25 mg PO DAILY 04/06/18 [History] Spironolactone [Aldactone] 25 mg PO DAILY 04/06/18 [History] Aspirin Enteric Coated [Aspirin EC] 81 mg PO DAILY #30 tablet. 04/07/18 [Rx] Acetaminophen [Pain Reliever] 500 mg PO Q6H PRN 05/06/18 [History] Albuterol Sulfate [Albuterol Inhaler] 2 puff IH Q6H PRN 05/06/18 [History] Calcium Carbonate [Tums] 500 mg PO Q4HR PRN 05/06/18 [History] Calcium Carbonate/Vitamin D3 [Caltrate 600 + D Soft Chew Tab] 2 each PO DAILY 05/06/18 [History] Nitroglycerin [Nitrostat] 0.4 mg SL Q5M PRN 05/06/18 [History] Atorvastatin [Lipitor] 40 mg PO DAILY 05/22/18 [History] Cefdinir [Omnicef] 300 mg PO BID #5 capsule 05/24/18 [Rx] EPINEPHrine [Epipen] 0.3 mg IM ONCE PRN #1 auto.injct 05/24/18 [Rx] predniSONE [PredniSONE] 10 mg PO DAILY #60 tablet 05/24/18 [Rx] Allergies/Adverse Reactions: Allergy/AdvReac Type Severity Reaction Status Date / Time ezetimibe [From Vytorin] AdvReac Cough Verified 05/05/18 07:59 simvastatin [From Vytorin] AdvReac Cough Verified 05/05/18 07:59 Date of admission: 05/22/18 17:23 Primary care physician: Yunior Christopher DO Consults: 05/20/18 08:14 Consult to ENT [CONS] Stat Consulting Provider: [facility] [place] Reason for Consult: angioedema, allergic rxn Call Completed: Yes 05/21/18 16:16 Consult to Nurse Navigator [CONS] Routine Comment: Copd 05/23/18 11:31 Consult to Cardiology [CONS] Routine Comment: Consulting Provider: [facility] [place] Reason for Consult: Chest pain abnormal EKG, hx of CAD s/p stents Call Completed: Yes - Constitutional Vitals: Temp Pulse Resp BP Pulse Ox 98.3 F 63 16 159/86 93 05/24/18 11:58 05/24/18 11:58 05/24/18 11:58 05/24/18 11:58 05/24/18 11:58 Exam: General: Patient is alert, oriented,overweight, speaks in full sentences, not in any acute distress Head: atraumatic, normocephalic, Eye: normal appearance, PERRL, no scleral icterus, no conjunctival injection ENT mucous membrane is moist, No lower lip swelling Neck: normal inspection, trachea midline, full ROM Respiratory: Good respiratory effort. faint wheezes at right base Cardiovascular: Regular rate and rhythm. s1 and s2 No clicks, rubs, gallops, or murmors. Abdomen: Bowel sounds present normoactive x-4 quadrants. Abdomen is soft, nondistended. no Epigastric tenderness. musculoskeletal: Spontaneously moving all extremities ( left lower extremity in support) . no edema, no calf tenderness Skin: warm, dry, intact. Neuro: Alert and oriented x4. No focal deficit - Patient Status Disposition: Home, Self-Care Condition: Good Overall status at discharge: patient is progressing back to baseline - Discharge Instructions Instructions: Acute Respiratory Distress Syndrome (DC) Follow Up With: Kenny Christopher DO [Primary Care Provider] - Annette Llanos MD [Partnered Physician] - 05/26/18 12:30 pm (follow up as scheduled) Neurosurgeon [Other] - Diet and Activity Activity: increase activity as tolerated Diet: low salt diet
[2018-05-24] MEDS ORDERED: Insulin LISPRO 300 UNITS/3 ML VIAL SQ STA (15:09)
[2018-05-24] MEDS: cefTRIAXone 1,000 MG in 0.9 % Sodium Chloride Mini Bag 100 ML IVPB SCH (15:32)
[2018-05-24 16:03] VITALS: BP 164/94
== END 2018-05-24 17:35 | disposition home or self-care (01) | DRG 915 ==
LOC: EMEROOARM 05:39 → 3NENU 05:39 → SUATTDRO 05-22 17:23
PROVIDERS: ADMIT Internal Medicine; ATTEND Hospitalist

== ENCOUNTER 2018-10-11 08:56 | Inpatient (IN) ==
[2018-10-11] MEDS ORDERED: Ipratropium/Albuterol Neb 3 ML IH ONE (09:19)
--- NOTE | 2018-10-11 09:25 | Emergency Department Note ---
Disposition Clinical Impression: Acute exacerbation of chronic obstructive airways disease Congestive heart failure Qualifiers: Heart failure type: unspecified Heart failure chronicity: unspecified Qualified Code(s): I50.9 - Heart failure, unspecified Disposition: Admitted As Inpatient Condition: Fair Time of Disposition: 21:10 SOB HPI - General Chief Complaint: ED Shortness of Breath/Dyspnea Stated Complaint: LUKAS Time Seen by Provider: 10/11/18 08:57 Source: patient, family Mode of arrival: ambulatory Limitations: no limitations Nursing Notes Reviewed: Yes Vital Signs Reviewed: Yes - History of Present Illness 77-year-old male past medical history of CVA, MT, COPD recently seen by his [facility] physician on for difficulty breathing prescribed azithromycin and prednisone at that time presenting for worsening dyspnea and cough. The patient states that he has had no chest pain but has continued to have shortness of breath productive of a clear sputum, patient states that he has had some difficulty breathing which has been relieved with DuoNeb therapies in his PCPs office as well as a home albuterol inhaler. The patient states that he has felt weak and fatigued but denies numbness tingling, lightheadedness or dizziness, there is been no nausea vomiting or abdominal pain, patient has no known history of congestive heart failure, he has no other concerns or complaints at this time. Upon my initial evaluation patient sitting upright in hospital bed, he is alert oriented engaged conversation answering questions appropriately. Patient appears to be in mild respiratory distress and is placed on 3 L nasal cannula here in the ED. The patient states that he only wears oxygen at night but wears 3 L. The patient denies a recent history of smoking but says that he is indeed a former smoker. The patient otherwise has no lateralizing signs, he is not cyanotic, non-pale nondiaphoretic. Pt Subjective Complaint: shortness of breath, cough Context: recent illness Severity: mild, moderate Consistency/Duration: gradually worsening Improves with: oxygen, bronchodilators, medication Worsens with: exertion Known history of: COPD, recurrent pneumonia Associated symptoms: Reports: cough, wheezing, sputum production Treatment prior to arrival: oxygen, bronchodilator Cough present: Yes Cough Description: Involuntary Cough Frequency: Intermittent Sputum production: Yes Sputum Amount: Small Sputum Color: Clear - Related Data Home oxygen amount: 3 liters Home Medications Medication Instructions Recorded Confirmed Cholecalciferol (Vitamin D3) 4,000 unit PO DAILY 04/06/18 10/11/18 [Vitamin D3] Levothyroxine Sodium [Levoxyl] 88 mcg PO DAILY 04/06/18 10/11/18 Metoprolol Succinate [Toprol Xl] 25 mg PO DAILY 04/06/18 10/11/18 Spironolactone [Aldactone] 25 mg PO DAILY 04/06/18 10/11/18 Acetaminophen [Pain Reliever] 500 mg PO Q6H PRN 05/06/18 10/11/18 Albuterol Sulfate [Proventil 2 puff IH Q6H PRN 05/06/18 10/11/18 Inhaler] Calcium Carbonate [Tums] 500 mg PO Q4HR PRN 05/06/18 10/11/18 Calcium Carbonate/Vitamin D3 2 each PO DAILY 05/06/18 10/11/18 [Caltrate 600 + D Soft Chew Tab] Nitroglycerin [Nitrostat] 0.4 mg SL Q5M PRN 05/06/18 10/11/18 Atorvastatin [Lipitor] 40 mg PO DAILY 05/22/18 10/11/18 Amlodipine Besylate 2.5 mg PO DAILY 10/11/18 10/11/18 Cetirizine HCl [Allergy Relief] 10 mg PO DAILY 10/11/18 10/11/18 Losartan [Cozaar] 25 mg PO DAILY 10/11/18 10/11/18 Potassium Chloride [Klor-Con 10] 10 meq PO BID 10/11/18 10/11/18 Previous Rx's Medication Instructions Recorded Aspirin Enteric Coated [Aspirin EC] 81 mg PO DAILY #30 tablet. 04/07/18 EPINEPHrine [Epipen] 0.3 mg IM ONCE PRN #1 auto.injct 05/24/18 Allergies Allergy/AdvReac Type Severity Reaction Status Date / Time ezetimibe [From Vytorin] AdvReac Cough Verified 10/11/18 08:57 simvastatin [From Vytorin] AdvReac Cough Verified 10/11/18 08:57 Review of Systems: *See History of Present Illness for more detail Constitutional: Denies: fever, chills Cardiovascular: Denies: chest pain Respiratory: Admits: dyspnea, cough denies: emoptysis Gastrointestinal: Denies: abdominal pain, nausea, vomiting, diarrhea, constipation, hematemesis, melena, hematochezia Genitourinary: Denies: hematuria Musculoskeletal: Denies: back pain, neck pain Neurological: Admits to weakness Denies: headache, lightheadedness/dizziness, numbness, paresthesias, difficulty with ambulation. Endocrine: Admits: fatigue All systems ED: reviewed and negative except as stated. Review of Systems: As Per HPI Past Medical History - Past Medical History Medical history: Reports: COPD, coronary artery disease, hyperlipidemia, hyp ertension, myocardial infarction, thyroid disease Surgical history: Reports: appendectomy, cholecystectomy, other Psychiatric history: Reports: no psych history - Social History Smoking Status: Current some day smoker Smokeless Tobacco Status: No Alcohol use: Reports: none Drug use: Reports: none Physical Exam Constitutional: No acute distress, [id number], engaged to conversation, speech is fluid, answers questions appropriately Neuro: GCS 15, no overt focal neurological deficits Head: Atraumatic, normocephalic Eyes: Pupils equal, round and reactive to light, no scleral icterus, no conjunctival injection Neck: Trachea midline without deviation. Anterior neck is supple without swelling. *Chest: Symmetric chest wall rise *Heart: Cardiac rhythm and rate are regular with S1 and S2 , no S3 or S4 appreciated, no murmurs, gallops, rubs, or clicks. *Lungs: Patient noted to have right-sided upper lobe wheezing with diffuse rhonchi and low tidal volumes of respiration. Abdomen: Abdomen is flat, soft to palpation, normal bowel sounds. No abdominal bruit auscultated. Non-distended, non-rigid, no organomegaly, no ascites appreciated. No pulsatile mass, no tenderness or guarding to palpation in all four quadrants, no rebound Extremities: Normal capillary refill without evidence of pedal edema, joint swelling or erythema. Pulses/motor/sensory intact in all 4 extremities. Psychiatric exam: Patient displays a normal affect and mood for the environment. No overt signs of hallucination. Integumentary: warm, dry, intact, normal color. No rash, cyanosis, diaphoresis, erythema, or pallor - General Limitations: no limitations General appearance: alert, in no apparent distress Course Course Narrative: Concern for pneumonia versus COPD, patient will be given 9 mL DuoNeb's for the management of his symptoms Chest x-ray, EKG/old EKG, basic labs, troponin, lactic acid, pro-calcitonin We will reassess frequently. - Reevaluation(s) Reevaluation #1: Patient's EKG repeat shows no acute ischemic change. Patient increased to 3 L/m oxygen as he was satting in the low 90% on 2 L. Patient's lung sounds with significantly more wheezing after DuoNeb treatment likely due to opening of the airways after treatment. Patient states that on his current steroid taper he took 20 mg of prednisone today. I will give 125 mg methylprednisolone today for the management of COPD exacerbation. I will also begin albuterol nebulizer at this time for further management and replace patient's blood pressure medication with 25 metoprolol, 25 spironolactone for the management of his hypertension. These medications were confirmed at the bedside with the patient and his . Time: 10:20 Vital Signs Temperature 97.9 F 10/11/18 08:57 Pulse Rate 65 10/11/18 08:57 Respiratory Rate 24 10/11/18 08:57 Blood Pressure 196/93 10/11/18 08:57 O2 Sat by Pulse Oximetry 93 10/11/18 08:57 Temperature 97.6 F 10/11/18 19:36 Pulse Rate 64 10/11/18 19:36 Respiratory Rate 16 10/11/18 20:33 Blood Pressure 154/88 10/11/18 19:36 O2 Sat by Pulse Oximetry 93 10/11/18 20:33 Oxygen Delivery Oxygen Delivery Nasal Cannula Shortness of Breath/Dyspnea - Lab Data Lab results reviewed: Yes I reviewed the patient's lab results. Result diagrams: 10/11/18 09:31 10/11/18 09:31 Lab Results 10/11/18 10/11/18 10/11/18 Range/Units 09:31 09:31 09:31 WBC 15.0 H (4.3-11.1) K/mcL RBC 4.63 (4.19-5.50) M/mcL Hgb 13.9 (12.9-16.9) g/dL Hct 41.8 (37.5-50.1) % MCV 90.3 (83.0-100.0) fL MCH 30.0 (28.0-33.3) pg MCHC 33.3 (31.6-35.5) g/dL RDW 12.7 (11.5-14.5) % Plt Count 224 (140-400) K/mcL MPV 11.0 (9.4-12.4) fL Immature Gran % 1.1 (0-4) % Seg Neutrophils % 75.7 % Lymphocytes % 14.8 % Monocytes % 8.1 % Eosinophils % 0.1 % Basophils % 0.2 % Neutrophils # 11.4 H (1.6-8.9) K/mcL Lymphocytes # 2.2 (0.6-4.6) K/mcL Monocytes # 1.2 (0.0-1.3) K/mcL Eosinophils # 0.0 (0.0-0.6) K/mcL Basophils # 0.0 (0.0-0.2) K/mcL Sodium 139 (136-145) mEq/L Potassium 4.0 (3.5-5.1) mEq/L Chloride 104 (98-107) mEq/L Carbon Dioxide 27 (23-29) mEq/L BUN 21 (8-23) mg/dL Creatinine 1.24 (0.70-1.30) mg/dL Est GFR ( Amer) > 60 (> 60) Est GFR (Non-Af Amer) 57 L (> 60) BUN/Creatinine Ratio 17 (6-26) Glucose 144 H (70-105) mg/dL Calculated Osmolality 294 (280-300) Lactic Acid 2.3 H (0.5-2.2) mmol/L Calcium 9.6 (8.6-10.3) mg/dL Troponin I < 0.03 (< 0.04) ng/mL B-Natriuretic Peptide (Less than 100) pg/mL Urine Color (Yellow) Urine Clarity (Clear) Urine pH (5.0-8.0) pH Units Ur Specific [place] (1.010-1.025) Urine Protein (Neg-Trace) mg/dL Urine Glucose (UA) (Normal) mg/dL Urine Ketones (Negative) mg/dL Urine Blood (Negative) Urine Nitrite (Negative) Urine Bilirubin (Negative) Urine Urobilinogen (Normal) mg/dL Ur Leukocyte Esterase (Negative) Ur Culture Indicated? (NO) 10/11/18 10/11/18 10/11/18 Range/Units 09:31 11:15 12:00 WBC (4.3-11.1) K/mcL RBC (4.19-5.50) M/mcL Hgb (12.9-16.9) g/dL Hct (37.5-50.1) % MCV (83.0-100.0) fL MCH (28.0-33.3) pg MCHC (31.6-35.5) g/dL RDW (11.5-14.5) % Plt Count (140-400) K/mcL MPV (9.4-12.4) fL Immature Gran % (0-4) % Seg Neutrophils % % Lymphocytes % % Monocytes % % Eosinophils % % Basophils % % Neutrophils # (1.6-8.9) K/mcL Lymphocytes # (0.6-4.6) K/mcL Monocytes # (0.0-1.3) K/mcL Eosinophils # (0.0-0.6) K/mcL Basophils # (0.0-0.2) K/mcL Sodium (136-145) mEq/L Potassium (3.5-5.1) mEq/L Chloride (98-107) mEq/L Carbon Dioxide (23-29) mEq/L BUN (8-23) mg/dL Creatinine (0.70-1.30) mg/dL Est GFR ( Amer) (> 60) Est GFR (Non-Af Amer) (> 60) BUN/Creatinine Ratio (6-26) Glucose (70-105) mg/dL Calculated Osmolality (280-300) Lactic Acid 3.2 H (0.5-2.2) mmol/L Calcium (8.6-10.3) mg/dL Troponin I (< 0.04) ng/mL B-Natriuretic Peptide 185 H (Less than 100) pg/mL Urine Color Yellow (Yellow) Urine Clarity Clear (Clear) Urine pH 6.0 (5.0-8.0) pH Units Ur Specific [place] 1.018 (1.010-1.025) Urine Protein Negative (Neg-Trace) mg/dL Urine Glucose (UA) Normal (Normal) mg/dL Urine Ketones Negative (Negative) mg/dL Urine Blood Negative (Negative) Urine Nitrite Negative (Negative) Urine Bilirubin Negative (Negative) Urine Urobilinogen Normal (Normal) mg/dL Ur Leukocyte Esterase Negative (Negative) Ur Culture Indicated? NO (NO) - Radiology Data Radiology results reviewed: Yes I reviewed the patient's radiology results. Chest X-Ray 10/11/18 09:07 IMPRESSION: Bibasilar atelectasis and/or scarring. D/ / Pepito Jerry MD / Pepito Jerry MD Interpreting Provider: Pepito Jerry MD - EKG Data EKG attestation: Yes I reviewed and interpreted this EKG. EKG results narrative: Patient's EKG shows a sinus rhythm with a heart rate of 60 bpm, ND interval 204 ms, QRS duration 100 ms, QT/QTc intervals 433/403 ms respectively negative urinalysis. There are ST segment elevations proximally 2 mm in height noted in lead 2 and lead [address] segment elevations noted in lead aVF which are less than 1 mL, there are biphasic T waves noted in lead V2 and V3 with a lesser extent in V1, there are no ST segment depressions noted, there are no pathologic Q waves or abnormal T-wave inversions, this EKG does not meet STEMI criteria and however we will repeat for further analysis. This EKG performed today is generally consistent its morphology with prior EKG performed on 05/24/2018. 10:15 AM. Repeat EKG shows a sinus arrhythmia with a heart of 60 bpm, ND interval 206, QRS duration 93 ms, QT/QTC of all 453/453 ms respectively by Computer analysis, the ST segment elevations previously noted to have resolved and may represent an artifact or improper lead placement, there are no significant ST segment elevations, depressions, pathologic Q waves, or abnormal T-wave inversions noted on this EKG. There is still no signs of acute ischemic change. Patient's EKG is still consistent with priors. Attestation Statement - Attestation Attestation: I, Jj Howard, examined this patient and my medical decision-making was reviewed with the MARKETING OPERATIONS COORDINATOR/PA/Advanced Practice Nurse/Resident Physician. I agree with the documented findings, disposition and treatment plan as described except to the extent set forth below. 77-year-old male presents emergency department for evaluation of difficulty in breathing. Patient states his symptoms have been worsening over the past few days, he was initially evaluated by his primary care provider who provided him with azithromycin and prednisone. Patient has been taking his medications without improvement of his symptoms. He reports that his symptoms have been worsening over the past 24 hours. Patient states his shortness of breath is significantly worse with exertion however he does have shortness breath with laying flat. No history of congestive heart failure in the past. Patient does have a history of recent CVA with expressive aphasia which has since resolved. He currently takes aspirin daily. Patient denies fever at home. On physical exam he had decreased air movement in the bilateral posterior lung costa. He was given breathing treatment and his feelings of shortness of breath improved however he was still requiring 2 L of oxygen and satting 90%. He does have a mildly elevated BNP. He was given IV Lasix for possible congestive heart failure. He was also given steroids and will be admitted to the hospital for further evaluation of possible COPD exacerbation versus acute CHF. He does have an elevated white blood cell count however this is likely secondary to use of steroids as he does not have a fever. Chest x-ray did not show an obvious infiltrate. Patient will be admitted to the hospitalist for further care and evaluation.
[2018-10-11 09:47] LABS: Basophils % 0.2 %; Eosinophils % 0.1 %; Hematocrit 41.8 % (37.5-50.1); Hemoglobin 13.9 g/dL (12.9-16.9); Immature Granulocytes % 1.1 % (0-4); Lymphocytes # 2.2 K/mcL (0.6-4.6); Lymphocytes % 14.8 %; Mean Corpuscular HGB Conc 33.3 g/dL (31.6-35.5); Mean Corpuscular Volume 90.3 fL (83.0-100.0); Monocytes # 1.2 K/mcL (0.0-1.3); Monocytes % 8.1 %; Neutrophils # 11.4 K/mcL (1.6-8.9); Platelet Count 224 K/mcL (140-400); Red Blood Count 4.63 M/mcL (4.19-5.50); Red Cell Distribution Width 12.7 % (11.5-14.5); Segmented Neutrophils % 75.7 %
[2018-10-11 10:17] LABS: BUN/Creatinine Ratio 17 (6-26); Blood Urea Nitrogen 21 mg/dL (8-23); Carbon Dioxide 27 mEq/L (23-29); Chloride 104 mEq/L (98-107); Glucose 144 mg/dL (70-105); Osmolality,Calculated 294 (280-300); Sodium 139 mEq/L (136-145); Troponin I < 0.03 ng/mL (< 0.04); eGFR For African Americans > 60 (> 60); eGFR For Non-African Americans 57 (> 60)
[2018-10-11] MEDS ORDERED: Albuterol 2.5 MG/3 ML NEBULIZER IH ONE (10:21)
[2018-10-11] MEDS ORDERED: methylPREDNISolone 125 MG/2 ML VIAL IVP ONE (10:25)
[2018-10-11] MEDS ORDERED: amLODIPine 5 MG TABLET PO STA (10:26)
[2018-10-11] MEDS ORDERED: Spironolactone 25 MG TABLET PO STA (10:27)
[2018-10-11 10:40] LABS: Calcium 9.6 mg/dL (8.6-10.3)
[2018-10-11] MEDS ORDERED: Furosemide 20 MG/2 ML VIAL IVP ONE (11:37)
[2018-10-11] MEDS ORDERED: EPINEPHrine 1 MG/ML VIAL IM PRN (11:57)
[2018-10-11] MEDS ORDERED: Nitroglycerin 0.4 MG TAB.SUBL SL PRN (11:57)
[2018-10-11] MEDS ORDERED: Naloxone 0.4 MG/ML INJ IVP PRN (11:59)
[2018-10-11] MEDS ORDERED: Ipratropium/Albuterol Neb 3 ML ONE (12:13)
[2018-10-11] MEDS: Ipratropium/Albuterol Neb 3 ML IH SCH ×3 (12:16→20:33)
[2018-10-11 12:18] LABS: Bilirubin,Urine Negative (Negative); Blood,Urine Negative (Negative); Clarity,Urine Clear (Clear); Color,Urine Yellow (Yellow); Glucose,Urine (UA) Normal (Normal); Ketones,Urine Negative (Negative); Leukocyte Esterase,Urine Negative (Negative); Nitrite,Urine Negative (Negative); Protein,Urine Negative (Neg-Trace); Specific Gravity,Urine 1.018 (1.010-1.025); Urobilinogen,Urine Normal (Normal)
--- NOTE | 2018-10-11 12:24 | Internal Med History&Physical ---
Date of Encounter: 10/11/18 Time of Encounter: 12:17 Internal Medicine - H&P: HPI History of present illness: Mr. German is a 77 year old male with history of CVA, COPD, CAD, O2 required at night time presented for SOB with cough with clear sputum. He went to primary care provider two days ago and prescribed Prednisone and azithromycin. He continued to have SOB despite this. He denied any chest pain, N/V, diarrhea, palpitations, numbness tingling. He required 3L O2 in the ED, a chest x-ray did not show any acute process. EKG done showed no acute ischemic changes. He was given Duo Neb treatments and his aeration of lung costa improved. Currently patient is complaining of chronic cough with clear sputum production. 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 - Social History Smoking Status: Current some day smoker Smokeless Tobacco Status: No Alcohol use: none Drug use: none - Family History Mother Living Status: Hx Family Cardiac Disorders: Yes Hx Family Respiratory Disorders: Yes Hx Family Cancer: No Hx Family GI Disorders: No Hx Family Endocrine Disorder: No Hx Family Neuromuscular Disorders: No Hx Family Neurologic Disorders: No Hx Family HEENT Disorders: No Hx Family Autoimmune Disorders: No Father Living Status: Hx Family Cardiac Disorders: Yes Hx Family Neurologic Disorders: No Internal Medicine - H&P: Meds Cholecalciferol (Vitamin D3) [Vitamin D3] 4,000 unit PO DAILY 04/06/18 [History] Levothyroxine Sodium [Levoxyl] 88 mcg PO DAILY 04/06/18 [History] Metoprolol Succinate [Toprol Xl] 25 mg PO DAILY 04/06/18 [History] Spironolactone [Aldactone] 25 mg PO DAILY 04/06/18 [History] Aspirin Enteric Coated [Aspirin EC] 81 mg PO DAILY #30 tablet. 04/07/18 [Rx] Acetaminophen [Pain Reliever] 500 mg PO Q6H PRN 05/06/18 [History] Albuterol Sulfate [Proventil Inhaler] 2 puff IH Q6H PRN 05/06/18 [History] Calcium Carbonate [Tums] 500 mg PO Q4HR PRN 05/06/18 [History] Calcium Carbonate/Vitamin D3 [Caltrate 600 + D Soft Chew Tab] 2 each PO DAILY 05/06/18 [History] Nitroglycerin [Nitrostat] 0.4 mg SL Q5M PRN 05/06/18 [History] Atorvastatin [Lipitor] 40 mg PO DAILY 05/22/18 [History] EPINEPHrine [Epipen] 0.3 mg IM ONCE PRN #1 auto.injct 05/24/18 [Rx] Amlodipine Besylate 2.5 mg PO DAILY 10/11/18 [History] Cetirizine HCl [Allergy Relief] 10 mg PO DAILY 10/11/18 [History] Losartan [Cozaar] 25 mg PO DAILY 10/11/18 [History] Potassium Chloride [Klor-Con 10] 10 meq PO BID 10/11/18 [History] Allergy/AdvReac Type Severity Reaction Status Date / Time ezetimibe [From Vytorin] AdvReac Cough Verified 10/11/18 08:57 simvastatin [From Vytorin] AdvReac Cough Verified 10/11/18 08:57 All Systems PM: A 10-system review of systems was performed and is negative for pertinent findin gs except as documented above in the HPI. - Constitutional Vitals: Temp Pulse Resp BP Pulse Ox 97.9 F 63 18 166/106 94 10/11/18 09:33 10/11/18 12:14 10/11/18 12:14 10/11/18 12:14 10/11/18 12:14 General appearance: Present: A&O X 3 Exam: chronically coughing - Head Head exam: Present: atraumatic, normocephalic - Eye Eye exam: Present: PERRL, conjuntiva pink, sclera anicteric Pupils: Present: PERRL - Neck Neck exam general surgery: Present: supple, trachea midline. Absent: lymphadenopathy - Respiratory Respiratory exam: Present: decreased breath sounds, wheezes. Absent: accessory muscle use, rales, rhonchi - Cardiovascular Cardiovascular exam: Present: RRR, +S1, +S2. Absent: diastolic murmur, gallop, rubs, systolic murmur - GI/Abdominal GI/Abdominal exam: Present: normal bowel sounds, soft, no peritoneal signs. Absent: distended, tenderness - Extremities Exam Extremities exam: Present: warm, radial pulses palpable and symmetrical. Absent: calf tenderness, cyanotic, pedal edema - Neurological Exam Neurological exam: Present: CN II-XII intact, oriented X3, no focal deficits. Absent: pronater drift, facial droop, speech deficit - Skin Skin exam: Present: dry, intact Internal Med - H&P Results - Labs CBC & Chem 7: 10/11/18 09:31 10/11/18 09:31 Labs: Short CBC 10/11/18 Range/Units 09:31 WBC 15.0 H (4.3-11.1) K/mcL Hgb 13.9 (12.9-16.9) g/dL Hct 41.8 (37.5-50.1) % Plt Count 224 (140-400) K/mcL Neutrophils # 11.4 H (1.6-8.9) K/mcL BMP 10/11/18 09:31 Sodium 139 Potassium 4.0 Chloride 104 Carbon Dioxide 27 BUN 21 Creatinine 1.24 Glucose 144 H Calcium 9.6 Cardiac Enzymes 10/11/18 Range/Units 09:31 Troponin I < 0.03 (< 0.04) ng/mL - Impressions ITS Impressions Chest X-Ray 10/11/18 09:07 IMPRESSION: Bibasilar atelectasis and/or scarring. D/ / Pepito Jerry MD / Pepito Jerry MD Interpreting Provider: Pepito Jerry MD - Assessment and Plan (1) Acute exacerbation of chronic obstructive pulmonary disease (COPD) Current Visit: No Status: Acute Assessment and plan: notes this is likely triggered by the recent change in temperature a few days ago when it got significantly hotter and more humid. - Continue Solu Medrol - Duo Neb scheduled - CT scan chest rule out other cause (2) Acute respiratory failure with hypoxia Current Visit: No Status: Acute Assessment and plan: Plan as above. (3) CAD (coronary artery disease) Current Visit: No Status: Chronic Assessment and plan: Resume home medications Qualifiers: Coronary Disease-Associated Artery/Lesion type: [place] artery [place] vs. transplanted heart: [place] heart Associated angina: without angina Qualified Code(s): I25.10 - Atherosclerotic heart disease of [place] coronary artery without angina pectoris (4) HTN (hypertension) Current Visit: No Status: Chronic Assessment and plan: Resume home medications. Qualifiers: Hypertension type: essential hypertension Qualified Code(s): I10 - Essential (primary) hypertension (5) Hypothyroid Current Visit: No Status: Chronic Qualifiers: Hypothyroidism type: acquired Qualified Code(s): E03.9 - Hypothyroidism, unspecified (6) DVT prophylaxis Current Visit: No Status: Acute Assessment and plan: Lovenox 40 mg SQ - Time Spent With Patient Total time spent is greater than 50% in coordination of care (as documented) at patient's floor/unit and/or counseling patient:
[2018-10-11] MEDS ORDERED: 0.9 % Sodium Chloride 500 ML IVC ONE (14:38)
[2018-10-11] MEDS: MethylPREDNISolone 40 MG/ML VIAL IVP SCH ×2 (15:43→23:28)
[2018-10-11] MEDS: Doxycycline 100 MG in 0.9 % Sodium Chloride Mini Bag 100 ML IVPB SCH (17:27)
[2018-10-11] MEDS: 0.9 % Sodium Chloride 1,000 ML IV SCH ×2 (17:27→21:02)
[2018-10-11] MEDS: GuaiFENesin Liq 200 MG/10 ML UDC PO PRN (21:06)
[2018-10-12] MEDS: Ipratropium/Albuterol Neb 3 ML IH SCH ×6 (00:47→20:00)
--- NOTE | 2018-10-12 00:48 | Electrocardiograph Report ---
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
--- NOTE | 2018-10-12 00:48 | Electrocardiograph Report ---
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
[2018-10-12] MEDS: GuaiFENesin Liq 200 MG/10 ML UDC PO PRN ×3 (03:56→23:11)
[2018-10-12 04:56] LABS: Basophils % 0.2 %; Hematocrit 40.6 % (37.5-50.1); Hemoglobin 13.3 g/dL (12.9-16.9); Immature Granulocytes % 1.5 % (0-4); Lymphocytes # 0.7 K/mcL (0.6-4.6); Lymphocytes % 7.4 %; Mean Corpuscular HGB Conc 32.8 g/dL (31.6-35.5); Mean Corpuscular Hemoglobin 30.4 pg (28.0-33.3); Mean Corpuscular Volume 92.9 fL (83.0-100.0); Mean Platelet Volume 11.6 fL (9.4-12.4); Monocytes # 0.4 K/mcL (0.0-1.3); Monocytes % 4.3 %; Neutrophils # 8.5 K/mcL (1.6-8.9); Nucleated Red Blood Cells 0.2 /100 WBC (0); Platelet Count 189 K/mcL (140-400); Red Blood Count 4.37 M/mcL (4.19-5.50); Red Cell Distribution Width 12.6 % (11.5-14.5); Segmented Neutrophils % 86.6 %; White Blood Count 9.8 K/mcL (4.3-11.1)
[2018-10-12 05:10] LABS: BUN/Creatinine Ratio 25 (6-26); Blood Urea Nitrogen 33 mg/dL (8-23); Calcium 8.8 mg/dL (8.6-10.3); Carbon Dioxide 25 mEq/L (23-29); Chloride 102 mEq/L (98-107); Glucose 304 mg/dL (70-105); Osmolality,Calculated 305 (280-300); Potassium 3.9 mEq/L (3.5-5.1); Sodium 138 mEq/L (136-145); eGFR For African Americans > 60 (> 60); eGFR For Non-African Americans 52 (> 60)
[2018-10-12] MEDS: Doxycycline 100 MG in 0.9 % Sodium Chloride Mini Bag 100 ML IVPB SCH ×2 (06:17→18:03)
[2018-10-12] MEDS: Aspirin Enteric Coated 81 MG Tablet PO SCH (08:08)
[2018-10-12] MEDS: Loratadine 10 MG TABLET PO SCH (08:08)
[2018-10-12] MEDS: MethylPREDNISolone 40 MG/ML VIAL IVP SCH ×2 (08:08→18:03)
[2018-10-12] MEDS: Metoprolol XL (24 HR) Succ 25 MG TAB.ER.24H PO SCH (08:08)
[2018-10-12] MEDS: Cholecalciferol (D-3) 1,000 UNIT (25MCG) TABLET PO SCH (08:08)
[2018-10-12] MEDS: amLODIPine 5 MG TABLET PO SCH (08:09)
[2018-10-12] MEDS ORDERED: Spironolactone 25 MG TABLET PO SCH (09:00)
--- NOTE | 2018-10-12 13:10 | Internal Med Progress Note ---
Hospitalist Progress Note - Encounter Date of Encounter: 10/12/18 Time of Encounter: 10:20 - Subjective Interval History: Mr German is currently admitted for acute exac COPD and respiratory failure. He remains moderate to high risk due to potential for worsening clinical and respiratory status. Mr German seems to be a little better today he feels. He is still wheezing quite a bit. No fever or chills. No CP. Has been getting up some. at bedside and updated. Denies GI issues. Cough not productive today. - Exam Vitals: Temp Pulse Resp BP Pulse Ox 97.8 F 62 16 151/87 93 10/12/18 11:13 10/12/18 11:13 10/12/18 11:22 10/12/18 11:13 10/12/18 11:22 Exam: General: Alert and oriented. Comfortable at this time. Skin: Normal color, no rash H: Normocephalic. EENT: EOMI, Mucus membranes moist. Cardiovascular: Normal S1 & S2, Pulse regular. Not tachycardic at this time. Lungs: Diffuse end exp wheeze. No rhonchi or rales. Abdomen: Soft, non-tender, Normal bowel sounds. Extremities: No deformity, No edema noted. Neurological: Normal cognition and motor skills. Pulses: radial pulses normal +2. Rest of the physical exam is non contributory - Assessment and Plan (1) Acute respiratory failure with hypoxia Current Visit: No Status: Acute Assessment and Plan: Pt presented to ED with dyspnea and cough. Normally uses oxygen only at night. Remains on 3L now. Will wean off as able. If not will do qualification. (2) Acute exacerbation of chronic obstructive pulmonary disease (COPD) Current Visit: No Status: Acute Assessment and Plan: Most likely triggered by weather change CT chest consistent with bronchitis picture - nodular densities - will need follow up in 3-6 months. Continue steroids, beta agonist, abx and oxygen Anticipate pt will be hospitalized 24-48 hours more. Will change to inpatient status. (3) CAD (coronary artery disease) Current Visit: No Status: Chronic Assessment and Plan: No acute symptoms. Continue home meds. (4) DVT prophylaxis Current Visit: No Status: Acute Assessment and Plan: Lovenox 40 mg SQ (5) HTN (hypertension) Current Visit: No Status: Chronic Assessment and Plan: BP controlled for the most part. Continue current medications. (6) Hypothyroid Current Visit: No Status: Chronic Assessment and Plan: Continue home synthroid. (7) Congestive heart failure Current Visit: Yes Status: Chronic Assessment and Plan: Not in exacerbation. Continue home meds. (8) Tobacco abuse Current Visit: Yes Status: Chronic Assessment and Plan: Cessation counselling. - Time Spent with Patient Total time spent is greater than 50% in coordination of care (as documented) at patient's floor/unit and/or counseling patient: Internal Medicine: Result - Labs CBC & Chem 7: 10/12/18 04:27 10/12/18 04:27 Labs: Short CBC 10/12/18 Range/Units 04:27 WBC 9.8 (4.3-11.1) K/mcL Hgb 13.3 (12.9-16.9) g/dL Hct 40.6 (37.5-50.1) % Plt Count 189 (140-400) K/mcL Neutrophils # 8.5 (1.6-8.9) K/mcL BMP 10/12/18 04:27 Sodium 138 Potassium 3.9 Chloride 102 Carbon Dioxide 25 BUN 33 H Creatinine 1.34 H Glucose 304 H Calcium 8.8 Consult Discharge Plan - Plan Referrals: Kenny Christopher DO [Primary Care Provider] - (3) CAD (coronary artery disease) Qualifiers: Coronary Disease-Associated Artery/Lesion type: [place] artery [place] vs. transplanted heart: [place] heart Associated angina: without angina Qualified Code(s): I25.10 - Atherosclerotic heart disease of [place] coronary artery without angina pectoris (5) HTN (hypertension) Qualifiers: Hypertension type: essential hypertension Qualified Code(s): I10 - Essential (primary) hypertension (6) Hypothyroid Qualifiers: Hypothyroidism type: acquired Qualified Code(s): E03.9 - Hypothyroidism, unspecified (7) Congestive heart failure Qualifiers: Heart failure type: diastolic Heart failure chronicity: chronic Qualified Code(s): I50.32 - Chronic diastolic (congestive) heart failure
[2018-10-13] MEDS: Ipratropium/Albuterol Neb 3 ML IH SCH ×7 (00:21→23:06)
[2018-10-13] MEDS: MethylPREDNISolone 40 MG/ML VIAL IVP SCH (06:20)
[2018-10-13] MEDS: Doxycycline 100 MG in 0.9 % Sodium Chloride Mini Bag 100 ML IVPB SCH (06:20)
[2018-10-13 06:27] LABS: Hematocrit 41.3 % (37.5-50.1); Hemoglobin 13.5 g/dL (12.9-16.9); Mean Corpuscular HGB Conc 32.7 g/dL (31.6-35.5); Mean Corpuscular Hemoglobin 29.9 pg (28.0-33.3); Mean Corpuscular Volume 91.4 fL (83.0-100.0); Mean Platelet Volume 11.7 fL (9.4-12.4); Platelet Count 208 K/mcL (140-400); Red Blood Count 4.52 M/mcL (4.19-5.50); Red Cell Distribution Width 12.8 % (11.5-14.5); White Blood Count 12.9 K/mcL (4.3-11.1)
[2018-10-13 06:46] LABS: BUN/Creatinine Ratio 28 (6-26); Blood Urea Nitrogen 39 mg/dL (8-23); Carbon Dioxide 22 mEq/L (23-29); Chloride 101 mEq/L (98-107); Glucose 323 mg/dL (70-105); Osmolality,Calculated 306 (280-300); Potassium 4.3 mEq/L (3.5-5.1); Sodium 137 mEq/L (136-145); eGFR For African Americans > 60 (> 60); eGFR For Non-African Americans 51 (> 60)
--- NOTE | 2018-10-13 10:19 | Internal Med Progress Note ---
<Isidoro Mello - Last Filed: 10/13/18 17:24> Hospitalist Progress Note - Encounter Date of Encounter: 10/13/18 - Exam Vitals: Temp Pulse Resp BP Pulse Ox 98.1 F 74 20 143/88 90 10/13/18 15:19 10/13/18 15:19 10/13/18 15:30 10/13/18 15:19 10/13/18 15:30 - Assessment and Plan (1) Acute respiratory failure with hypoxia Current Visit: No Status: Acute (2) Acute exacerbation of chronic obstructive pulmonary disease (COPD) Current Visit: No Status: Acute (3) CAD (coronary artery disease) Current Visit: No Status: Chronic (4) DVT prophylaxis Current Visit: No Status: Acute (5) HTN (hypertension) Current Visit: No Status: Chronic (6) Hypothyroid Current Visit: No Status: Chronic (7) Congestive heart failure Current Visit: Yes Status: Chronic (8) Tobacco abuse Current Visit: Yes Status: Chronic - Time Spent with Patient Total time spent is greater than 50% in coordination of care (as documented) at patient's floor/unit and/or counseling patient: Internal Medicine: Result - Labs CBC & Chem 7: 10/13/18 05:06 10/13/18 05:06 Labs: Short CBC 10/13/18 Range/Units 05:06 WBC 12.9 H (4.3-11.1) K/mcL Hgb 13.5 (12.9-16.9) g/dL Hct 41.3 (37.5-50.1) % Plt Count 208 (140-400) K/mcL BMP 10/13/18 05:06 Sodium 137 Potassium 4.3 Chloride 101 Carbon Dioxide 22 L BUN 39 H Creatinine 1.37 H Glucose 323 H Calcium 9.0 Consult Discharge Plan - Plan Referrals: Kenny Christopher DO [Primary Care Provider] - - Attending Attestation I examined this patient and my medical decision-making was reviewed with the Resident Physician on 10/13/18. I agree with the documented findings, disposition and treatment plan as described except to the extent set forth below. Mr German is currently admitted for acute exac COPD. He remains moderate to high risk due to potential for worsening clinical status. Mr German is breathing somewhat better. No fever or chills. No CP. Exam: Alert. Comfortable. Mucus membranes dry. Heart not tachy. No wheeze today. No rash. NC. Neck supple. Moves all extremities. No edema. Abd soft Plan: Change to PO abx and steroids. Anticipate d/c tomorrow. <Roddy Jean I - Last Filed: 10/13/18 19:09> Hospitalist Progress Note - Encounter Date of Encounter: 10/13/18 Time of Encounter: 09:15 - Subjective Interval History: Mr German is a known case of COPD currently admitted due to COPD exacerbation . he is still dyspnic but better than the time of addmission . still cough with clear color sputum production , no chest pain , no fever or chills . no nausea vomiting diarrhea or constipation - Exam Vitals: Temp Pulse Resp BP Pulse Ox 97.5 F L 58 16 161/94 99 10/13/18 07:19 10/13/18 07:19 10/13/18 07:19 10/13/18 07:19 10/13/18 07:19 Exam: General: Alert and oriented. Comfortable at this time. Skin: Normal color, no rash H: Normocephalic. EENT: EOMI, Mucus membranes moist. Cardiovascular: Normal S1 & S2, Pulse regular. Not tachycardic at this time. Lungs: Diffuse end exp wheeze. No rhonchi or rales. Abdomen: Soft, non-tender, Normal bowel sounds. Extremities: No deformity, No edema noted. Neurological: Normal cognition and motor skills. Pulses: radial pulses normal +2. Rest of the physical exam is non contributory - Assessment and Plan (1) Acute respiratory failure with hypoxia Current Visit: No Status: Acute Assessment and Plan: Pt presented to ED with dyspnea and cough. Normally uses oxygen only at night. Remains on 3L now. Will wean off as able. (2) Acute exacerbation of chronic obstructive pulmonary disease (COPD) Current Visit: No Status: Acute Assessment and Plan: Most likely triggered by weather change CT chest consistent with bronchitis picture - nodular densities - will need foll ow up in 3-6 months. Continue steroids 40 mg IV q12, beta agonist, abx doxycyclin day 3 of 5 days c ourse and oxygen (3) Congestive heart failure Current Visit: Yes Status: Chronic Assessment and Plan: Not in exacerbation. Continue home meds. (4) CAD (coronary artery disease) Current Visit: No Status: Chronic Assessment and Plan: No acute symptoms. Continue home meds. (5) Hypothyroid Current Visit: No Status: Chronic Assessment and Plan: chronic condition , continue home synthyroid (6) Tobacco abuse Current Visit: Yes Status: Chronic Assessment and Plan: Cessation counselling. - Time Spent with Patient Total time spent is greater than 50% in coordination of care (as documented) at patient's floor/unit and/or counseling patient: Internal Medicine: Result - Labs CBC & Chem 7: 10/13/18 05:06 10/13/18 05:06 Labs: Short CBC 10/13/18 Range/Units 05:06 WBC 12.9 H (4.3-11.1) K/mcL Hgb 13.5 (12.9-16.9) g/dL Hct 41.3 (37.5-50.1) % Plt Count 208 (140-400) K/mcL BMP 10/13/18 05:06 Sodium 137 Potassium 4.3 Chloride 101 Carbon Dioxide 22 L BUN 39 H Creatinine 1.37 H Glucose 323 H Calcium 9.0 <Isidoro Mello - Last Filed: 10/13/18 17:24> (3) CAD (coronary artery disease) Qualifiers: Coronary Disease-Associated Artery/Lesion type: [place] artery [place] vs. transplanted heart: [place] heart Associated angina: without angina Qualified Code(s): I25.10 - Atherosclerotic heart disease of [place] coronary artery without angina pectoris (5) HTN (hypertension) Qualifiers: Hypertension type: essential hypertension Qualified Code(s): I10 - Essential (primary) hypertension (6) Hypothyroid Qualifiers: Hypothyroidism type: acquired Qualified Code(s): E03.9 - Hypothyroidism, unspecified (7) Congestive heart failure Qualifiers: Heart failure type: diastolic Heart failure chronicity: chronic Qualified Code(s): I50.32 - Chronic diastolic (congestive) heart failure <MirandaMarcellaludmila Burrell - Last Filed: 10/13/18 19:09> (3) Congestive heart failure Qualifiers: Heart failure type: diastolic Heart failure chronicity: chronic Qualified Code(s): I50.32 - Chronic diastolic (congestive) heart failure (4) CAD (coronary artery disease) Qualifiers: Coronary Disease-Associated Artery/Lesion type: [place] artery [place] vs. transplanted heart: [place] heart Associated angina: without angina Qualified Code(s): I25.10 - Atherosclerotic heart disease of [place] coronary artery without angina pectoris (5) Hypothyroid Qualifiers: Hypothyroidism type: acquired Qualified Code(s): E03.9 - Hypothyroidism, unspecified
[2018-10-13] MEDS: Aspirin Enteric Coated 81 MG Tablet PO SCH (10:21)
[2018-10-13] MEDS: Metoprolol XL (24 HR) Succ 25 MG TAB.ER.24H PO SCH (10:21)
[2018-10-13] MEDS: Cholecalciferol (D-3) 1,000 UNIT (25MCG) TABLET PO SCH (10:21)
[2018-10-13] MEDS: Loratadine 10 MG TABLET PO SCH (10:23)
[2018-10-13] MEDS: amLODIPine 5 MG TABLET PO SCH (10:24)
[2018-10-13] MEDS ORDERED: D5% in Water 1,000 ML IVC PRN (11:40)
[2018-10-13] MEDS ORDERED: *HR* Dextrose 50 % in Water (Syg) 50 ML SYRINGE IVP PRN (11:40)
[2018-10-13] MEDS ORDERED: Dextrose Gel 15 GM/37.5 ML TUBE PO PRN ×2 (11:40)
[2018-10-13] MEDS: Insulin LISPRO 300 UNITS/3 ML VIAL SQ SCH ×2 (12:32→16:54)
[2018-10-13] MEDS: predniSONE 20 MG TABLET PO SCH (16:54)
[2018-10-13] MEDS: Doxycycline 100 MG CAPSULE PO SCH (20:21)
[2018-10-13] MEDS ORDERED: Insulin DETEMIR 100 UNIT/ML X5UNITS SQ SCH (21:00)
[2018-10-14] MEDS: Ipratropium/Albuterol Neb 3 ML IH SCH ×3 (04:10→11:26)
[2018-10-14 05:40] LABS: Basophils # 0.1 K/mcL (0.0-0.2); Basophils % 0.4 %; Hematocrit 43.2 % (37.5-50.1); Hemoglobin 14.3 g/dL (12.9-16.9); Immature Granulocytes % 2.9 % (0-4); Lymphocytes # 1.2 K/mcL (0.6-4.6); Lymphocytes % 9.6 %; Mean Corpuscular HGB Conc 33.1 g/dL (31.6-35.5); Mean Corpuscular Hemoglobin 30.6 pg (28.0-33.3); Mean Corpuscular Volume 92.3 fL (83.0-100.0); Mean Platelet Volume 11.5 fL (9.4-12.4); Monocytes # 0.9 K/mcL (0.0-1.3); Monocytes % 6.9 %; Neutrophils # 10.4 K/mcL (1.6-8.9); Platelet Count 210 K/mcL (140-400); Red Blood Count 4.68 M/mcL (4.19-5.50); Red Cell Distribution Width 12.8 % (11.5-14.5); Segmented Neutrophils % 80.2 %; White Blood Count 12.9 K/mcL (4.3-11.1)
[2018-10-14 06:00] LABS: BUN/Creatinine Ratio 29 (6-26); Blood Urea Nitrogen 37 mg/dL (8-23); Calcium 9.2 mg/dL (8.6-10.3); Carbon Dioxide 25 mEq/L (23-29); Chloride 101 mEq/L (98-107); Glucose 234 mg/dL (70-105); Osmolality,Calculated 300 (280-300); Potassium 4.4 mEq/L (3.5-5.1); Sodium 137 mEq/L (136-145); eGFR For African Americans > 60 (> 60); eGFR For Non-African Americans 54 (> 60)
[2018-10-14] MEDS: Insulin LISPRO 300 UNITS/3 ML VIAL SQ SCH ×2 (08:10→13:00)
[2018-10-14] MEDS: Cholecalciferol (D-3) 1,000 UNIT (25MCG) TABLET PO SCH (08:11)
[2018-10-14] MEDS: Metoprolol XL (24 HR) Succ 25 MG TAB.ER.24H PO SCH (08:11)
[2018-10-14] MEDS: predniSONE 20 MG TABLET PO SCH (08:11)
[2018-10-14] MEDS: Doxycycline 100 MG CAPSULE PO SCH (08:11)
[2018-10-14] MEDS: amLODIPine 5 MG TABLET PO SCH (08:11)
[2018-10-14] MEDS: Loratadine 10 MG TABLET PO SCH (08:11)
[2018-10-14] MEDS: Aspirin Enteric Coated 81 MG Tablet PO SCH (08:11)
--- NOTE | 2018-10-14 08:51 | Discharge Summary ---
<Roddy Jean I - Last Filed: 10/14/18 13:43> - NOTES TO OUTPATIENT PROVIDER Notes to Outpatient Provider: Mr. Lopez is discharged home on his home med plus he had high blood sugar and needed insulin so will be discharged with metformin 500mg BID and need to follow up with the primary care provider to adju st his medication . also he needs 3 more days of doxycycline .CT chest consistent with bronchitis picture - nodular densities - will need follow up in 3-6 months. also we stopped his home azithromycin Date of Encounter: 10/14/18 Time of Encounter: 07:40 - Discharge Diagnosis (1) Acute respiratory failure with hypoxia Priority: Primary Status: Acute (2) Acute exacerbation of chronic obstructive pulmonary disease (COPD) Priority: Secondary Status: Acute (3) Congestive heart failure Priority: Secondary Status: Chronic Qualifiers: Heart failure type: diastolic Heart failure chronicity: chronic Qualified Code(s): I50.32 - Chronic diastolic (congestive) heart failure (4) CAD (coronary artery disease) Priority: Secondary Status: Chronic Qualifiers: Coronary Disease-Associated Artery/Lesion type: [place] artery [place] vs. transplanted heart: [place] heart Associated angina: without angina Qualified Code(s): I25.10 - Atherosclerotic heart disease of [place] coronary artery without angina pectoris (5) Hypothyroid Priority: Secondary Status: Chronic Qualifiers: Hypothyroidism type: acquired Qualified Code(s): E03.9 - Hypothyroidism, unspecified (6) Tobacco abuse Priority: Secondary Status: Chronic Hospital course: Mr. German is a 77 year old male, known case of COPD currently admitted due to COPD exacerbation .Pt presented to ED with dyspnea and cough. Normally uses oxygen only at night. now he is doing better still has cough but not dyspnic . he was treated with steroids 40 mg IV q12 then change to 40 mg oral , beta agonist, abx doxycyclin day 4 of 5 days course and oxygen . CT chest consistent with bronchitis picture - nodular densities - will need follow up in 3-6 months. . CXR show bibasilar airspace opacities otherwise clear lungs . patient will be discharged home . with the plan to followup with primary care provider for his high blood sugar . he has new medication to be taken that is metformin for 30 days twice daily and doxycycline BID for 3 days plus his home medication and we stopped his azithromycin . patient is stable and understand the treatment and plan and is asked to come back to hospital if he has any new complains or concerns . Discharge discussed with: patient - Time Spent with Patient Total time spent providing and/or coordinating discharge services: - Discharge Medications Prescriptions: New Doxycycline 100 mg PO BID 3 Days #6 capsule metFORMIN [Glucophage] 500 mg PO BIDWM 30 Days #60 tablet Continued Levothyroxine Sodium [Levoxyl] 88 mcg PO DAILY Metoprolol Succinate [Toprol Xl] 25 mg PO DAILY Spironolactone [Aldactone] 25 mg PO DAILY Aspirin Enteric Coated [Aspirin EC] 81 mg PO DAILY #30 tablet. Acetaminophen [Pain Reliever] 500 mg PO Q6H PRN PRN Reason: Pain Calcium Carbonate [Tums] 500 mg PO Q4HR PRN PRN Reason: Dyspepsia Nitroglycerin [Nitrostat] 0.4 mg SL Q5M PRN PRN Reason: Chest Pain Atorvastatin [Lipitor] 40 mg PO DAILY EPINEPHrine [Epipen] 0.3 mg IM ONCE PRN #1 auto.injct PRN Reason: Allergic Reaction Potassium Chloride [Klor-Con 10] 10 meq PO DAILY Cetirizine HCl [Allergy Relief] 10 mg PO DAILY predniSONE [PredniSONE] See Taper PO AD Cholecalciferol (D-3) [Vitamin D] 2,000 unit PO DAILY Discontinued Azithromycin 250 mg PO DAILY Home Medications: Levothyroxine Sodium [Levoxyl] 88 mcg PO DAILY 04/06/18 [History] Metoprolol Succinate [Toprol Xl] 25 mg PO DAILY 04/06/18 [History] Spironolactone [Aldactone] 25 mg PO DAILY 04/06/18 [History] Aspirin Enteric Coated [Aspirin EC] 81 mg PO DAILY #30 tablet. 04/07/18 [Rx] Acetaminophen [Pain Reliever] 500 mg PO Q6H PRN 05/06/18 [History] Calcium Carbonate [Tums] 500 mg PO Q4HR PRN 05/06/18 [History] Nitroglycerin [Nitrostat] 0.4 mg SL Q5M PRN 05/06/18 [History] Atorvastatin [Lipitor] 40 mg PO DAILY 05/22/18 [History] EPINEPHrine [Epipen] 0.3 mg IM ONCE PRN #1 auto.injct 05/24/18 [Rx] Cetirizine HCl [Allergy Relief] 10 mg PO DAILY 10/11/18 [History] Potassium Chloride [Klor-Con 10] 10 meq PO DAILY 10/11/18 [History] Cholecalciferol (D-3) [Vitamin D] 2,000 unit PO DAILY 10/13/18 [History] predniSONE [PredniSONE] See Taper PO AD 10/13/18 [History] Doxycycline 100 mg PO BID 3 Days #6 capsule 10/14/18 [Rx] metFORMIN [Glucophage] 500 mg PO BIDWM 30 Days #60 tablet 10/14/18 [Rx] Allergies/Adverse Reactions: Allergy/AdvReac Type Severity Reaction Status Date / Time ezetimibe [From Vytorin] AdvReac Cough Verified 10/11/18 08:57 simvastatin [From Vytorin] AdvReac Cough Verified 10/11/18 08:57 Date of admission: 10/12/18 18:09 Primary care physician: Yunior Christopher DO Discharging clinician: Isidoro Mello Anticipated date of discharge: 10/14/18 - Constitutional Vitals: Temp Pulse Resp BP Pulse Ox 97.6 F 69 17 174/99 92 10/14/18 07:24 10/14/18 07:24 10/14/18 07:24 10/14/18 07:24 10/14/18 08:18 General appearance: Present: A&O X 3, no acute distress, answers questions appropriately Exam: . - Head Head exam: Present: atraumatic, normal inspection, normocephalic - Eye Eye exam: Present: EOMI, normal appearance, sclera anicteric - Neck Neck exam general surgery: Present: full ROM, normal inspection, supple, trachea midline - Respiratory Respiratory exam: Present: CTAB, wheezes - Cardiovascular Cardiovascular exam: Present: RRR, +S1, +S2 - GI/Abdominal GI/Abdominal exam: Present: normal bowel sounds, soft - Extremities Exam Extremities exam: Present: full ROM, normal inspection - Neurological Exam Neurological exam: Present: normal gait, oriented X3 - Psychiatric Psychiatric exam: Present: normal affect, normal mood - Patient Status Disposition: Home, Self-Care Condition: Good Functional capacity at discharge: independent ambulation Overall status at discharge: patient is back to baseline - Discharge Instructions Instructions: Doxycycline (By mouth), Metformin (By mouth), Chest Pain (DC), Acute Respiratory Distress Syndrome (DC), Chronic Obstructive Pulmonary Disease (DC), Reactive Airways Disease (DC), Angioedema (GEN), Dyspnea (GEN), Pneumonia (DC) Follow Up With: Kenny Christopher DO [Primary Care Provider] - (Appointment has been requested.) Additional Instructions: take doxycycline for 3 days twice daily take the new medication metformin for your high blood sugar . also follow up with your PCP for additional medication adjustment and the metformin might cause diarrhea - Diet and Activity Activity: increase activity as tolerated Diet: advance to your usual diet <RiazIsidoro A - Last Filed: 10/14/18 14:18> Date of Encounter: 10/14/18 - Discharge Diagnosis (1) Acute respiratory failure with hypoxia Status: Acute (2) Acute exacerbation of chronic obstructive pulmonary disease (COPD) Status: Acute (3) CAD (coronary artery disease) Status: Chronic Qualifiers: Coronary Disease-Associated Artery/Lesion type: [place] artery [place] vs. transplanted heart: [place] heart Associated angina: without angina Qualified Code(s): I25.10 - Atherosclerotic heart disease of [place] coronary artery without angina pectoris (4) HTN (hypertension) Priority: Secondary Status: Chronic Qualifiers: Hypertension type: essential hypertension Qualified Code(s): I10 - Essential (primary) hypertension (5) Hypothyroid Status: Chronic Qualifiers: Hypothyroidism type: acquired Qualified Code(s): E03.9 - Hypothyroidism, unspecified (6) Congestive heart failure Status: Chronic Qualifiers: Heart failure type: diastolic Heart failure chronicity: chronic Qualified Code(s): I50.32 - Chronic diastolic (congestive) heart failure (7) Tobacco abuse Status: Chronic Hospital course: Mr. German is a 77 year old male - Time Spent with Patient Total time spent providing and/or coordinating discharge services: Date of admission: 10/12/18 18:09 Primary care physician: Yunior Christopher DO Consults: 10/14/18 10:33 Consult to Nurse Navigator [CONS] Routine Comment: COPD - Constitutional Vitals: Temp Pulse Resp BP Pulse Ox 97.4 F L 65 18 143/71 95 10/14/18 11:15 10/14/18 11:15 10/14/18 11:26 10/14/18 11:15 10/14/18 11:26 - Attending Attestation I examined this patient and my medical decision-making was reviewed with the Resident Physician on 10/14/18 I agree with the documented findings, disposition and treatment plan as described except to the extent set forth below. Mr German has been hospitalized for acute exac COPD. He has qualified for daytime oxygen. He is feeling near baseline and is afebrile. He is ready for discharge home. Exam: Alert. Comfortable. Mucus membranes dry. NC. Scant wheeze. Heart reg. Abd soft No edema. No rash. Plan: D/C home today. Follow up with PCP. D/C time 35min
[2018-10-14 11:22] VITALS: BP 143/71
== END 2018-10-14 13:46 | disposition home or self-care (01) | DRG 190 ==
LOC: 3BNU 08:56 → EMEROOARM 08:56 → SUATTDRO 12:38 → 3BNU 13:10
PROVIDERS: ADMIT Student in an Organized Health Care Education/Training Program; ATTEND Internal Medicine

== ENCOUNTER 2020-01-23 08:16 | Observation (INO) ==
[2020-01-23] MEDS ORDERED: 0.9 % Sodium Chloride 1,000 ML IVC ONE (08:26)
[2020-01-23] MEDS ORDERED: methylPREDNISolone 125 MG/2 ML VIAL IVP ONE (08:26)
[2020-01-23] MEDS ORDERED: Albuterol 2.5 MG/3 ML NEBULIZER IH ONE (08:26)
[2020-01-23] MEDS ORDERED: EPINEPHrine 1 MG/ML VIAL IM ONE (08:27)
[2020-01-23] MEDS ORDERED: Famotidine 20 MG/2 ML VIAL IVP ONE (08:28)
[2020-01-23 08:45] LABS: Basophils # 0.1 K/mcL (0.0-0.2); Basophils % 0.3 %; Eosinophils # 0.2 K/mcL (0.0-0.6); Hematocrit 45.4 % (37.5-50.1); Hemoglobin 14.6 g/dL (12.9-16.9); Immature Granulocytes % 0.7 % (0-4); Lymphocytes # 3.9 K/mcL (0.6-4.6); Lymphocytes % 26.9 %; Mean Corpuscular HGB Conc 32.2 g/dL (31.6-35.5); Mean Corpuscular Hemoglobin 30.2 pg (28.0-33.3); Mean Corpuscular Volume 93.8 fL (83.0-100.0); Mean Platelet Volume 10.5 fL (9.4-12.4); Monocytes # 1.3 K/mcL (0.0-1.3); Monocytes % 8.7 %; Platelet Count 300 K/mcL (140-400); Red Blood Count 4.84 M/mcL (4.19-5.50); Red Cell Distribution Width 13.8 % (11.5-14.5); Segmented Neutrophils % 62.4 %; White Blood Count 14.4 K/mcL (4.3-11.1)
[2020-01-23 09:08] LABS: Alanine Aminotransferase 12 Units/L (7-52); Albumin/Globulin Ratio 1.1 (1.1-2.2); Alkaline Phosphatase 70 Units/L (34-104); Aspartate Amino Transferase 13 Units/L (13-39); BUN/Creatinine Ratio 15 (6-26); Bilirubin,Direct 0.2 mg/dL (0.0-0.2); Bilirubin,Indirect 0.4 mg/dL (0.0-1.0); Bilirubin,Total 0.6 mg/dL (0.3-1.0); Blood Urea Nitrogen 18 mg/dL (8-23); Carbon Dioxide 23 mEq/L (23-29); Chloride 104 mEq/L (98-107); Globulin 3.5 g/dL (2.4-3.5); Glucose 125 mg/dL (70-105); Osmolality,Calculated 287 (280-300); Potassium 3.6 mEq/L (3.5-5.1); Sodium 137 mEq/L (136-145); Total Protein 7.5 g/dL (6.4-8.9); Troponin I < 0.03 ng/mL (< 0.04); eGFR For African Americans > 60 (> 60); eGFR For Non-African Americans 59 (> 60)
[2020-01-23] MEDS ORDERED: Ondansetron 4 MG/2 ML VIAL IVP PRN (12:05)
[2020-01-23] MEDS: Acetaminophen 325 MG TABLET PO PRN (17:47)
[2020-01-24] MEDS: Acetaminophen 325 MG TABLET PO PRN (06:51)
[2020-01-24] MEDS ORDERED: Spironolactone 25 MG TABLET PO SCH (09:00)
[2020-01-24] MEDS ORDERED: Metoprolol XL (24 HR) Succ 25 MG TAB.ER.24H PO SCH (09:00)
[2020-01-24] MEDS ORDERED: Loratadine 10 MG TABLET PO SCH (09:00)
[2020-01-24] MEDS ORDERED: allopurinoL 100 MG TABLET PO SCH (09:00)
[2020-01-24] MEDS ORDERED: Aspirin Enteric Coated 81 MG Tablet PO SCH (09:00)
[2020-01-24 11:29] VITALS: BP 139/80
[2020-01-24] MEDS ORDERED: predniSONE 20 MG TABLET PO ONE (11:42)
== END 2020-01-24 12:49 | disposition home or self-care (01) ==
LOC: EMEROOARM 08:16 → 2ANU 08:16
PROVIDERS: ADMIT Internal Medicine; ATTEND Internal Medicine